=== PATIENT | female | born 1955 | race Caucasian/White ===

== ENCOUNTER → 2017-02-12 | Outpatient (CLI) | payer MEDICARE, OTHER ==
[2017-02-12 12:34] LABS: CH 31.6; CHCM 32.3; HCT 42.4 % (34.0-46.0); HGB 13.7 gm/dL (11.4-16.0); MCH 31.7 pg (25.0-35.0); MCHC 32.3 g/dL (31.0-37.0); MCV 98.2 fL (80.0-100.0); Mean Platelet Volume 8.7; RBC 4.32 m/uL (3.80-5.40); RDW 13.4 % (11.5-15.5)
[2017-02-12 12:50] LABS: Anion Gap 7 mmol/L; Blood Urea Nitrogen 20 mg/dL (7-17); Calcium 9.8 mg/dL (8.4-10.2); Carbon Dioxide 26 mmol/L (22-30); Chloride 107 mmol/L (98-107); Glucose 282 mg/dL (74-99); Non-African American GFR(MDRD) 55 (>60 ml/min/1.73 sqM); Potassium 5.1 mmol/L (3.5-5.1); Sodium 140 mmol/L (137-145)
--- NOTE | 2017-02-12 14:24 | CT ---
EXAMINATION TYPE: CT abdomen pelvis w con DATE OF EXAM: 02/12/2017 COMPARISON: 08/19/2016 INDICATION: Patient complains of RLQ pain, recurrent UTI, and loss of appetite. DLP: 1040 mGycm, Automated exposure control for dose reduction was used. CONTRAST: 80 mL of Visipaque 320. Study performed with Oral Contrast TECHNIQUE: Axial images were obtained from above the diaphragm to the pubic rami in the axial plane a t 5 mm thick sections. Reconstructed images are reviewed on the computer in the coronal plane. FINDINGS: Limited CT sections are obtained the lung bases. The lung bases are clear. CT ABDOMEN: Liver: Normal Spleen: Multiple calcified granuloma within the spleen. Pancreas: Pancreatic duct within head and body is slightly prominent. There is some pancreas atrophy. Duct within the head of the pancreas measures 0.4 cm. Normal 0.3 cm. Duct within the pancreas body m easures 0.3 cm, normal less than 0.2 cm. Adrenal glands: The adrenal glands are normal. Gallbladder: Surgically absent Kidneys: No masses are evident. No hydronephrosis is present. No cysts are present. Aorta: Vascular calcification is within the aorta. Bypass graft through the iliac regions is present . Inferior vena cava: Normal. CT PELVIS: Loops of bowel within the abdomen and pelvis are normal. There are loops of bowel which are incom pletely distended or lack oral contrast limiting their evaluation. Appendix: Normal as visualized. Urinary bladder: Normal. Genitourinary structures: Uterus is normal. Adnexal regions are unremarkable. Osseous structures: No suspicious lytic or sclerotic lesions. Degenerative disc changes are present L 5-S1. IMPRESSIONS: 1. Prominence of the pancreatic duct. Abnormality is not identified. Consider ERCP for additional ev aluation. This appears to be interval change. 2. No suspicious acute changes.
== END | disposition home or self-care (01) ==
LOC: RADCTMAIN 12:00
PROVIDERS: ATTEND Family Medicine
DX: R10.9 Unspecified abdominal pain (principal)
CPT/HCPCS: 80048; 85027; 74177; 36415; Q9967

== ENCOUNTER 2017-03-24 13:33 | Observation (INO) | payer MEDICARE, OTHER ==
[2017-03-24] MEDS ORDERED: MORPHINE SULFATE 4 MG/ML SYRINGE IV STA (15:46)
[2017-03-24] MEDS ORDERED: ASPIRIN 81 MG CHEW PO STA (15:46)
[2017-03-24] MEDS ORDERED: ONDANSETRON 4 MG/2 ML VIAL IVP STA (15:50)
--- NOTE | 2017-03-24 16:01 | ED ---
Abdominal Pain HPI - General Chief Complaint: Abdominal Pain Stated Complaint: Abd Pain Time Seen by Provider: 03/24/17 15:26 Source: patient Mode of arrival: ambulatory Limitations: no limitations - History of Present Illness Initial Comments: Patient is a 61-year-old female with a significant medical history of 4 myocardial infarctions, and systemic vascular disease, who presents with the chief complaint of abdominal pain. Patient describes her abdominal pain as sharp, and radiating to her back. Patient states that this started this morning , and has been constant all day. Patient states that she also was supposed to have a cardiac stress test however she missed a couple weeks ago secondary to an illness. Patient cannot identify any aggravating or alleviating factors. Timing is constant. On initial evaluation, the patient's blood pressure was over 200 systolic MD Complaint: abdominal pain Onset/Timin -: days(s) Location: diffuse Radiation: back Severity: moderate Quality: sharp Consistency: constant Improves With: nothing Worsens With: nothing Associated Symptoms: nausea, vomiting, dysuria Treatments Prior to Arrival: prescription analgesics - Related Data Home Medications Medication Instructions Recorded Confirmed Clopidogrel [Plavix] 75 mg PO DAILY 08/19/16 03/24/17 Esomeprazole Magnesium 20 mg PO DAILY 08/19/16 03/24/17 Gabapentin [Neurontin] 300 mg PO BID 08/19/16 03/24/17 Gabapentin [Neurontin] 600 mg PO HS 08/19/16 03/24/17 Isosorbide Mononitrate ER [Imdur] 30 mg PO DAILY 08/19/16 03/24/17 Metoprolol Tartrate [Lopressor] 25 mg PO BID 08/19/16 03/24/17 Simvastatin [Zocor] 20 mg PO HS 08/19/16 03/24/17 predniSONE 5 mg PO DAILY 08/19/16 03/24/17 Albuterol Sulfate [Proair Hfa] 1 - 2 puff INHALATION RT-QID PRN 03/24/17 Cilostazol [Pletal] 100 mg PO AC-BID 03/24/17 03/24/17 HYDROcodone/APAP 10-325MG [[place] 1 tab PO BID PRN 03/24/17 03/24/17 10-325] Hydroxychloroquine Sulfate 200 mg PO BID 03/24/17 03/24/17 [Plaquenil] Insulin NPH/Reg Insulin 70/30 27 unit SQ BID 03/24/17 03/24/17 [humuLIN 70/30 VIAL] Meloxicam [Mobic] 15 mg PO DAILY 03/24/17 03/24/17 amLODIPine [Norvasc] 2.5 mg PO DAILY 03/24/17 03/24/17 Allergies Allergy/AdvReac Type Severity Reaction Status Date / Time No Known Allergies Allergy Verified 03/24/17 13:54 Review of Systems ROS Statement: Those systems with pertinent positive or pertinent negative responses have been documented in the HPI. ROS Other: All systems not noted in ROS Statement are negative. Respiratory: Reports: wheezes Cardiovascular: Reports: chest pain Gastrointestinal: Reports: nausea, vomiting Genitourinary: Reports: dysuria Musculoskeletal: Reports: back pain Past Medical History Past Medical History: Asthma, COPD, Diabetes Mellitus, Fibromyalgia, GERD/Reflux , Hyperlipidemia, Hypertension, Pneumonia, Vascular Disorder Additional Past Medical History / Comment(s): Recent UTI on ABX, NIDDM type II, lupus, sinusitis, low back pain-herniated discs, PVD, bilateral tinnitis, past R ankle fx. History of Any Multi-Drug Resistant Organisms: MRSA Date of last positivie culture/infection: 2010 MDRO Source:: right axilla Past Surgical History: Section, Heart Catheterization With Stent Additional Past Surgical History / Comment(s): Cardiac stent to LCX and mid RCA , bifem bypass done twice, colonoscopy, I&D R gluteal abscess, 2009 R salvary gland removed due to precancerous Past Anesthesia/Blood Transfusion Reactions: No Reported Reaction Date of Last Stent Placement:: 08/01/05 Past Psychological History: Anxiety, Depression Smoking Status: Current every day smoker Past Alcohol Use History: None Reported Past Drug Use History: None Reported - Past Family History Father Additional Family Medical History / Comment(s): Father had heart problems and of an aneurysm rupture in his "heart" at the age of 57yrs. Mother Additional Family Medical History / Comment(s): Mother had lung, brain and "female" cancer. She of this at the age of 57yrs. General Exam Limitations: no limitations General appearance: alert, in no apparent distress Head exam: Present: atraumatic, normocephalic Eye exam: Present: normal appearance ENT exam: Present: normal exam, mucous membranes moist Neck exam: Present: normal inspection Respiratory exam: Present: wheezes Cardiovascular Exam: Present: regular rate, normal rhythm GI/Abdominal exam: Present: soft, tenderness (Patient has diffuse tenderness. There are no palpable pulsatile masses.) Rectal exam: Present: deferred Extremities exam: Present: normal inspection Back exam: Present: normal inspection Neurological exam: Present: alert, oriented X3 Psychiatric exam: Present: normal affect, normal mood Skin exam: Present: warm, dry, intact Course Vital Signs 03/24/17 03/24/17 03/24/17 13:51 16:22 16:32 Temperature 98.1 F Pulse Rate 86 83 79 Respiratory 20 20 97 H Rate Blood Pressure 206/91 183/84 173/79 O2 Sat by Pulse 99 97 97 Oximetry 03/24/17 03/24/17 03/24/17 16:58 17:26 17:59 Temperature 98 F Pulse Rate 77 72 72 Respiratory 18 18 16 Rate Blood Pressure 167/93 169/79 180/85 O2 Sat by Pulse 97 95 95 Oximetry Medical Decision Making - Medical Decision Making Patient is a 61-year-old female with a significant past medical history of lupus , 4 MIs, and extensive vasculopathy requiring bypass. Patient continues to be every day smoker. Initial evaluation, the patient is hypertensive with a systolic blood pressure over 200. Patient's history and physical exam is concerning for aortic dissection. Further patient was supposed to have cardiac stress test for which she did not go to secondary to an illness. Patient is a high risk cardiac/vascular patient, we'll send patient cardiac workup, the patient for CT evaluation for aortic dissection. Patient was given 4 mg of morphine, 4 mg of Zofran, 5 mg every 5 minutes 3 doses of metoprolol for her blood pressure initially with a goal of his systolic blood pressure of 160. EKG performed at 1607 shows normal sinus rhythm with a right bundle branch block. Ventricular rate is 76 bpm intervals appear to be within normal limits, EKG is otherwise nonspecific. Right bundle branch block appears to be a new finding when compared to EKG performed on 08/19/2016. Patient not currently having active chest pain, she was given aspirin on arrival. Laboratory evaluation of this patient is unremarkable. Computed tomography scan of the abdomen chest and pelvis show evidence of vascular disease however there is no acute aneurysm, or dissection. Initial troponin is negative. On reexamination, patient states she is still having pain. given the patient is a heart score of 5, and does not have a recent stress test, I advised that it would be safest patient for observation, serial troponins, and repeat stress test. The patient is agreeable to this plan. I spoke with Phyllis Mortensen who accepted admission of this patient on behalf of Dr. Franco. Initial admission orders of been placed, further management per primary admitting team. - Lab Data Result diagrams: 03/24/17 15:24 03/24/17 15:24 Lab Results 03/24/17 03/24/17 03/24/17 Range/Units 15:24 15:24 15:24 WBC 9.1 (3.8-10.6) k/uL RBC 4.69 (3.80-5.40) m/uL Hgb 15.3 (11.4-16.0) gm/dL Hct 43.8 (34.0-46.0) % MCV 93.4 (80.0-100.0) fL MCH 32.8 (25.0-35.0) pg MCHC 35.1 (31.0-37.0) g/dL RDW 13.1 (11.5-15.5) % Plt Count 211 (150-450) k/uL Neutrophils % 80 % Lymphocytes % 13 % Monocytes % 5 % Eosinophils % 1 % Basophils % 0 % Neutrophils # 7.2 (1.3-7.7) k/uL Lymphocytes # 1.2 (1.0-4.8) k/uL Monocytes # 0.4 (0-1.0) k/uL Eosinophils # 0.1 (0-0.7) k/uL Basophils # 0.0 (0-0.2) k/uL PT (9.0-12.0) sec INR (<1.1) APTT (22.0-30.0) sec Sodium 141 (137-145) mmol/L Potassium 5.1 (3.5-5.1) mmol/L Chloride 105 (98-107) mmol/L Carbon Dioxide 24 (22-30) mmol/L Anion Gap 12 mmol/L BUN 22 H (7-17) mg/dL Creatinine 1.10 H (0.52-1.04) mg/dL Est GFR (MDRD) Af Amer >60 (>60 ml/min/1.73 sqM) Est GFR (MDRD) Non-Af 51 (>60 ml/min/1.73 sqM) Glucose 280 H (74-99) mg/dL Calcium 10.7 H (8.4-10.2) mg/dL Magnesium 1.7 (1.6-2.3) mg/dL Total Bilirubin 0.5 (0.2-1.3) mg/dL AST 17 (14-36) U/L ALT 26 (9-52) U/L Alkaline Phosphatase 55 (38-126) U/L Total Creatine Kinase 77 (30-135) U/L CK-MB (CK-2) 1.0 (0.0-2.4) ng/mL CK-MB (CK-2) Rel Index 1.3 Troponin I <0.012 (0.000-0.034) ng/mL Total Protein 7.9 (6.3-8.2) g/dL Albumin 4.8 (3.5-5.0) g/dL Lipase 36 (23-300) U/L Urine Color Urine Appearance (Clear) Urine pH (5.0-8.0) Ur Specific [place] (1.001-1.035) Urine Protein (Negative) Urine Glucose (UA) (Negative) Urine Ketones (Negative) Urine Blood (Negative) Urine Nitrite (Negative) Urine Bilirubin (Negative) Urine Urobilinogen (<2.0) mg/dL Ur Leukocyte Esterase (Negative) Urine WBC (0-5) /hpf Ur Squamous Epith Cells (0-4) /hpf Urine Bacteria (None) /hpf 03/24/17 03/24/17 Range/Units 15:24 16:02 WBC (3.8-10.6) k/uL RBC (3.80-5.40) m/uL Hgb (11.4-16.0) gm/dL Hct (34.0-46.0) % MCV (80.0-100.0) fL MCH (25.0-35.0) pg MCHC (31.0-37.0) g/dL RDW (11.5-15.5) % Plt Count (150-450) k/uL Neutrophils % % Lymphocytes % % Monocytes % % Eosinophils % % Basophils % % Neutrophils # (1.3-7.7) k/uL Lymphocytes # (1.0-4.8) k/uL Monocytes # (0-1.0) k/uL Eosinophils # (0-0.7) k/uL Basophils # (0-0.2) k/uL PT 10.4 (9.0-12.0) sec INR 1.0 (<1.1) APTT 21.0 L (22.0-30.0) sec Sodium (137-145) mmol/L Potassium (3.5-5.1) mmol/L Chloride (98-107) mmol/L Carbon Dioxide (22-30) mmol/L Anion Gap mmol/L BUN (7-17) mg/dL Creatinine (0.52-1.04) mg/dL Est GFR (MDRD) Af Amer (>60 ml/min/1.73 sqM) Est GFR (MDRD) Non-Af (>60 ml/min/1.73 sqM) Glucose (74-99) mg/dL Calcium (8.4-10.2) mg/dL Magnesium (1.6-2.3) mg/dL Total Bilirubin (0.2-1.3) mg/dL AST (14-36) U/L ALT (9-52) U/L Alkaline Phosphatase (38-126) U/L Total Creatine Kinase (30-135) U/L CK-MB (CK-2) (0.0-2.4) ng/mL CK-MB (CK-2) Rel Index Troponin I (0.000-0.034) ng/mL Total Protein (6.3-8.2) g/dL Albumin (3.5-5.0) g/dL Lipase (23-300) U/L Urine Color Colorless Urine Appearance Clear (Clear) Urine pH 5.5 (5.0-8.0) Ur Specific [place] 1.005 (1.001-1.035) Urine Protein Negative (Negative) Urine Glucose (UA) 3+ H (Negative) Urine Ketones Negative (Negative) Urine Blood Negative (Negative) Urine Nitrite Negative (Negative) Urine Bilirubin Negative (Negative) Urine Urobilinogen <2.0 (<2.0) mg/dL Ur Leukocyte Esterase Trace H (Negative) Urine WBC 3 (0-5) /hpf Ur Squamous Epith Cells 2 (0-4) /hpf Urine Bacteria Moderate H (None) /hpf Disposition Clinical Impression: Abdominal pain, Moderate risk chest pain, Atherosclerosis, Intractable abdominal pain Disposition: ADMITTED IP TO THIS HOSP Condition: Fair Referrals: Pavithra Ruiz MD [Primary Care Provider] - 1-2 days
[2017-03-24 16:15] LABS: ALT 26 U/L (9-52); AST 17 U/L (14-36); Alkaline Phosphatase 55 U/L (38-126); Anion Gap 12 mmol/L; Blood Urea Nitrogen 22 mg/dL (7-17); Calcium 10.7 mg/dL (8.4-10.2); Carbon Dioxide 24 mmol/L (22-30); Chloride 105 mmol/L (98-107); Glucose 280 mg/dL (74-99); Magnesium 1.7 mg/dL (1.6-2.3); Non-African American GFR(MDRD) 51 (>60 ml/min/1.73 sqM); Potassium 5.1 mmol/L (3.5-5.1); Prothrombin Time 10.4 sec (9.0-12.0); Sodium 141 mmol/L (137-145); Total Bilirubin 0.5 mg/dL (0.2-1.3); Total Protein 7.9 g/dL (6.3-8.2)
[2017-03-24 16:27] LABS: Basophils % (A) 0 %; CH 31.6; Eosinophils # (A) 0.1 k/uL (0-0.7); Eosinophils % (A) 1 %; HCT 43.8 % (34.0-46.0); HDW 2.54; HGB 15.3 gm/dL (11.4-16.0); Luc # (Auto) 0.07; Luc % (Auto) 1; Lymphocytes # (A) 1.2 k/uL (1.0-4.8); Lymphocytes % (A) 13 %; MCH 32.8 pg (25.0-35.0); MCHC 35.1 g/dL (31.0-37.0); MCV 93.4 fL (80.0-100.0); Mean Platelet Volume 8.6; Monocytes # (A) 0.4 k/uL (0-1.0); Monocytes % (A) 5 %; Neutrophils # (A) 7.2 k/uL (1.3-7.7); Neutrophils % (A) 80 %; RBC 4.69 m/uL (3.80-5.40); RDW 13.1 % (11.5-15.5); WBC 9.1 k/uL (3.8-10.6); WBC (Perox) 8.76
[2017-03-24] MEDS: METOPROLOL TARTRATE 5 MG/5 ML VIAL IVP SCH ×3 (16:27→20:12)
[2017-03-24 16:29] LABS: Appearance,Urine Clear (Clear); Bacteria,Urine Moderate /hpf; Bilirubin,Urine Negative (Negative); Glucose,Urine (UA) 3+ (Negative); Ketones,Urine Negative (Negative); Leukocyte Esterase,Urine Trace (Negative); Nitrite,Urine Negative (Negative); PH, Urine 5.5 (5.0-8.0); Particle Count 3933; Protein,Urine Negative (Negative); Specific Gravity,Urine 1.005 (1.001-1.035); Squamous Epithelial Cell,Urine 2 /hpf (0-4); UA Billing (MACRO vs. MICRO) MICRO; Urobilinogen,Urine <2.0 mg/dL (<2.0); WBC,Urine 3 /hpf (0-5)
[2017-03-24 16:29] LABS: Creatine Kinase 77 U/L (30-135)
[2017-03-24] MEDS: RX INFO: IV CONTRAST WAS GIVEN 1 EACH MISC MISCELLANE PRN ×2 (16:29→16:30)
[2017-03-24 16:42] LABS: Troponin I <0.012 ng/mL (0.000-0.034)
--- NOTE | 2017-03-24 18:04 | XR ---
Exam: FILM CXR Chest PA and lateral views INDICATION: Chest pain COMPARISON: CT chest follow-up 03/24/17 FINDINGS: The cardiomediastinal silhouette is within normal limits. 7 mm calcified granuloma in the left lower lobe midlung field. Additional 5 mm calcified granuloma also in the left midlung field. Remaining lung roque are clear. No acute infiltrate. No pleural effusions. Bony elements are within normal limits for age. No acute osseous abnormality. IMPRESSION: No acute cardiopulmonary disease. 2 calcified granulomas in the left midlung field largest 7 mm. Lungs are otherwise clear without acute infiltrate. Heart size normal.
--- NOTE | 2017-03-24 18:26 | CT ---
Exam: CTA OTHER - CT angio thoracic/abd aorta HISTORY: Pain TECHNIQUE: Multiple contiguous transaxial 5 mm images of the chest, abdomen and pelvis were obtained from thoracic inlet to the pubic symphysis prior to adm. of intravenous contrast. Postcontrast CT chest abdomen pelvis performed from the thoracic inlet to the pubic symphysis at 5 mm axial images. Coronal sagittal reformatted images are provided. Highest CT dose index volume 54.40, total DLP 649.3. COMPARISON: CT abdomen pelvis 02/12/17, chest radiograph 03/24/17 FINDINGS: CT chest: Thoracic aorta normal caliber with mild vascular calcification. No dissection. R graft no pulmonary embolism. Extensive coronary artery calcification. Heart size normal. No pericardial effusion. There are 2 calcified granulomas in the left lower lobe at the mid lung field largest 8 mm. Additional 7 mm calcified granuloma left lower lobe. There are small calcified left hilar lymph nodes and subcarinal lymph node. Lungs are otherwise clear. No effusion or pneumothorax. Endplate degenerative osteophyte formation at several levels of the mid to lower thoracic spine mild degree. No acute osseous abnormality. 9 mm low-density nodule right lobe of the thyroid gland. 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 No internal flow is seen. Overall the transverse dimension of the abdominal aorta at this level is 2.6 cm and AP dimension is up to 1.7 cm. Aortobifemoral patent graft is again noted. No periaortic hematoma or contrast extravasation or dissection flap. Thrombosed manzanita common iliac, external iliac and internal iliac arteries with no flow detected within these vessels. Celiac artery along with superior mesenteric artery are patent without hemodynamically significant stenotic lesion. Inferior mesenteric artery is not seen. Renal arteries are patent without hemodynamically significant stenotic lesion. Calcified granulomas of the spleen. Cholecystectomy noted. Common bile duct diameter measures up to 9 mm tapering distally stable not unexpected post cholecystectomy. Liver, pancreas, adrenal glands and kidneys are unremarkable. No free fluid or free air or bowel obstruction. Small hiatal hernia noted. No adenopathy. No adnexal lesion. Appendix is not identified however no secondary signs for acute appendicitis is seen. No diverticulitis. Unopacified urinary bladder is unremarkable. Multilevel degenerative changes of the lower lumbar spine again noted with discogenic degenerative disease at L5/S1. No acute osseous abnormality.. IMPRESSION: 1. Thoracic aorta normal caliber without dissection. 2. 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 Aortobifemoral graft is again noted with graft patent. No dissection of the abdominal aorta or periaortic hematoma or contrast extravasation. 3. Extensive coronary artery calcification. Heart size normal. 4. No pulmonary embolism. 5. Calcified granulomas in the left lower lobe and spleen along with calcified small left hilar and mediastinal lymph nodes. No acute infiltrates in the lungs. 6. Cholecystectomy. 7. No acute intra-abdominal process identified. No free fluid or free air or bowel obstruction. 8. 9 mm low-density nodule right lobe of the thyroid gland. 10. Small hiatal hernia.
[2017-03-24] MEDS ORDERED: MORPHINE SULFATE 2 MG/ML SYRINGE IVP ONE (18:41)
[2017-03-24] MEDS ORDERED: ACETAMINOPHEN TAB 325 MG TAB PO PRN (19:03)
[2017-03-24] MEDS ORDERED: NALOXONE 0.4 MG/ML 1 ML VIAL IV PRN (19:03)
[2017-03-24] MEDS ORDERED: HYDROcodone/APAP 5-325MG 1 EACH TAB PO PRN (19:03)
[2017-03-24] MEDS ORDERED: METOPROLOL TARTRATE 25 MG TAB PO STA (20:05)
[2017-03-24 21:36] LABS: Glucose,Whole Blood 222 mg/dL (75-99)
[2017-03-24] MEDS ORDERED: ALBUTEROL NEBULIZED 2.5 MG/3 ML INHALATION PRN (22:30)
[2017-03-24] MEDS: ONDANSETRON 4 MG/2 ML VIAL IVP PRN (22:35)
[2017-03-24] MEDS: HYDROmorphone 1 MG/ML 1 ML SYRINGE IVP PRN (23:16)
[2017-03-24] MEDS: ATORVASTATIN 10 MG TAB PO SCH (23:17)
[2017-03-24] MEDS: HYDROXYCHLOROQUINE SULFATE 200 MG TAB PO SCH (23:17)
[2017-03-24] MEDS: CILOSTAZOL 100 MG TAB PO SCH (23:17)
[2017-03-24] MEDS: GABAPENTIN 300 MG CAP PO SCH (23:17)
[2017-03-25] MEDS ORDERED: guaiFENesin SYRUP 100MG/5ML 200 MG/10 ML CUP PO PRN (03:37)
[2017-03-25 03:49] LABS: Basophils # (A) 0.1 k/uL (0-0.2); Basophils % (A) 1 %; CH 31.3; CHCM 33.6; Eosinophils # (A) 0.3 k/uL (0-0.7); Eosinophils % (A) 4 %; HCT 42.2 % (34.0-46.0); HDW 2.55; HGB 14.3 gm/dL (11.4-16.0); Luc # (Auto) 0.14; Luc % (Auto) 2; Lymphocytes # (A) 1.8 k/uL (1.0-4.8); Lymphocytes % (A) 23 %; MCH 31.8 pg (25.0-35.0); MCHC 33.9 g/dL (31.0-37.0); MCV 93.6 fL (80.0-100.0); Mean Platelet Volume 7.3; Monocytes # (A) 0.6 k/uL (0-1.0); Monocytes % (A) 7 %; Neutrophils # (A) 5.1 k/uL (1.3-7.7); Neutrophils % (A) 64 %; RDW 12.9 % (11.5-15.5); WBC (Perox) 8.17
[2017-03-25 04:02] LABS: Potassium 4.7 mmol/L (3.5-5.1)
[2017-03-25 06:51] LABS: Glucose,Whole Blood 163 mg/dL (75-99)
[2017-03-25] MEDS: HYDROmorphone 1 MG/ML 1 ML SYRINGE IVP PRN ×3 (08:29→21:25)
[2017-03-25] MEDS ORDERED: MELOXICAM 7.5 MG TAB PO SCH (09:00)
[2017-03-25] MEDS ORDERED: amLODIPine 2.5 MG TAB PO SCH (09:00)
[2017-03-25] MEDS: ONDANSETRON 4 MG/2 ML VIAL IVP PRN (09:15)
[2017-03-25] MEDS: CLOPIDOGREL 75 MG TAB PO SCH (09:57)
[2017-03-25] MEDS: GABAPENTIN 300 MG CAP PO SCH ×3 (09:57→20:58)
[2017-03-25] MEDS: CILOSTAZOL 100 MG TAB PO SCH ×2 (09:57→17:48)
[2017-03-25] MEDS: amLODIPine 5 MG TAB PO SCH (09:57)
[2017-03-25] MEDS: predniSONE 5 MG TAB PO SCH (09:58)
[2017-03-25] MEDS: HYDROXYCHLOROQUINE SULFATE 200 MG TAB PO SCH ×2 (09:58→20:58)
[2017-03-25] MEDS: ISOSORBIDE MONONITRATE ER 30 MG TAB.ER.24H PO SCH (09:58)
[2017-03-25] MEDS: METOPROLOL TARTRATE 25 MG TAB PO SCH ×2 (09:58→20:58)
[2017-03-25] MEDS: PANTOPRAZOLE 40 MG TABLET PO SCH (09:58)
[2017-03-25] MEDS: NICOTINE 14MG/24HR PATCH TRANSDERM SCH (09:59)
[2017-03-25] MEDS: ASPIRIN 81 MG CHEW PO SCH (09:59)
[2017-03-25] MEDS: INSULIN NPH/REG INSULIN 70/30 300 UNIT/3 ML VIAL SQ SCH ×2 (10:04→20:59)
[2017-03-25 12:03] LABS: Glucose,Whole Blood 128 mg/dL (75-99)
[2017-03-25] MEDS ORDERED: MAG HYDROX/AL HYDROX/SIMETH 30 ML, HYOSCYAMINE ELIXIR 10 ML, CIMETIDINE HCL 300 MG, LID... PO STA ×8 (12:07→12:09)
--- NOTE | 2017-03-25 16:07 | CONS ---
This is a 61 year old lady with a known history of smoking, COPD, history of aortobifemoral surgery who came into the emergency room. This lady was visiting here with her family and has her health care in the [facility] and [place], [place]. She came in with abdominal pain, sharp and seemed to be associated with some nausea. She does not have any chest discomfort to suggest angina. Troponins do not reveal any myocardial injury. Her blood pressure was also elevated transiently. Pressure is better now. She is resting comfortably without symptoms. She still has some tenderness in the abdomen. CT scan of the abdomen did not reveal any significant abnormalities. She has history of aortobifem surgery as well as percutaneous intervention, details of which are unavailable. She has no documented history of any percutaneous coronary intervention. Her history is somewhat sketchy. PAST MEDICAL HISTORY: 1. Peripheral arterial disease with history of aortobifemoral surgery performed in the past. 2. She has history of smoking. 3. COPD. 4. Hyperlipidemia. 5. Hypertension. She has history of previous heart catheterization, stent to circumflex and RCA, the details of which are not available. This was prior to 2009. SOCIAL HISTORY: The patient smokes half to one pack daily, does not use alcohol on a regular basis. On examination, the blood pressure is 150/80. Pulse rate is 70 per minute. Regular. HEENT was unremarkable. Fundus was not examined by me. Neck is supple. There was was no JVD. I do not hear a carotid bruit. Heart exam reveals S1, S2 heard normally with a short systolic murmur heard at the base. Lungs revealed diminished air entry. Abdomen is soft. There is some tenderness in the epigastrium. Bowel sounds are normal. Lower extremities reveal diminished pulses. Central nervous system is normal. EKG reveals sinus mechanism, right bundle branch block pattern. Laboratory data reveals that troponins are normal. Renal function is normal. Blood glucose is elevated. IMPRESSION: 1. Hypertension. 2. History of coronary artery disease with previous percutaneous coronary intervention more than ten years ago, details are unclear. 3. History of aortobifemoral surgery in the past. 4. Type 2 diabetes. 5. Hypertension. 6. History of chronic obstructive pulmonary disease on Prednisone. RECOMMENDATIONS: Cardiac-cho, I am not recommending any intervention. This lady may have CAD but on presentation does not suggest myocardial injury. She has abdominal pain which has improved. There is no aortic pathology by CT scan also. I would recommend no intervention but will increase the Amlodipine to 5 mg daily to optimize BP control and she can be discharged when she is feeling better and ambulatory and have further care at [facility] and also [facility] where she has had previous vascular surgeries. If she has any anginal type symptoms, I will come back and reevaluate the patient. Thank you very much for the consult. STEFANI
--- NOTE | 2017-03-25 16:34 | P.HPIM ---
History of Present Illness H&P Date: 03/25/17 Chief Complaint: Abdominal pain This is a 61-year-old female with previous history of CAD, PAD comes in the hospital with abdominal pain 5 weeks. Patient was seen by her primary care physician initially underwent an evaluation of the computed tomography scan of the abdomen was noted to have a dilatation of the pancreatic duct. Patient states her complains of diffuse abdominal pain that is constant with intermittent spurts worsening. Patient denies having any worsening of pain with relation to oral intake No other alleviating or exacerbating factors have been attributed by the patient No recent weight loss as reported Patient states that she has been having urinary urgency as well as the recent times Patient was admitted also complaining of some lower chest pain and was seen by her lock installer as well At this time patient states that she has nausea and diffuse abdominal pain that is 5-6 out of 10 in intensity Review of Systems All systems: negative (Noted in HPI) Past Medical History Past Medical History: Asthma, COPD, Diabetes Mellitus, Fibromyalgia, GERD/Reflux , Hyperlipidemia, Hypertension, Pneumonia, Vascular Disorder Additional Past Medical History / Comment(s): Recent UTI on ABX, NIDDM type II, lupus, sinusitis, low back pain-herniated discs, PVD, bilateral tinnitis, past R ankle fx. History of Any Multi-Drug Resistant Organisms: MRSA Date of last positivie culture/infection: 2010 MDRO Source:: right axilla Past Surgical History: Section, Cholecystectomy, Heart Catheterization With Stent Additional Past Surgical History / Comment(s): Cardiac stent to LCX and mid RCA , bifem bypass done twice, colonoscopy, I&D R gluteal abscess, 2009 R salvary gland removed due to precancerous Past Anesthesia/Blood Transfusion Reactions: No Reported Reaction Date of Last Stent Placement:: 08/01/05 Smoking Status: Current every day smoker - Past Family History Father Additional Family Medical History / Comment(s): Father had heart problems and of an aneurysm rupture in his "heart" at the age of 57yrs. Mother Additional Family Medical History / Comment(s): Mother had lung, brain and "female" cancer. She of this at the age of 57yrs. Medications and Allergies Home Medications Medication Instructions Recorded Confirmed Type Clopidogrel [Plavix] 75 mg PO DAILY 08/19/16 03/24/17 History Esomeprazole Magnesium 20 mg PO DAILY 08/19/16 03/24/17 History Gabapentin [Neurontin] 300 mg PO BID 08/19/16 03/24/17 History Gabapentin [Neurontin] 600 mg PO HS 08/19/16 03/24/17 History Isosorbide Mononitrate ER [Imdur] 30 mg PO DAILY 08/19/16 03/24/17 History Metoprolol Tartrate [Lopressor] 25 mg PO BID 08/19/16 03/24/17 History Simvastatin [Zocor] 20 mg PO HS 08/19/16 03/24/17 History predniSONE 5 mg PO DAILY 08/19/16 03/24/17 History Albuterol Sulfate [Proair Hfa] 2 puff INHALATION RT-QID PRN 03/24/17 03/24/17 History Cilostazol [Pletal] 100 mg PO AC-BID 03/24/17 03/24/17 History HYDROcodone/APAP 10-325MG [[place] 1 tab PO BID PRN 03/24/17 03/24/17 History 10-325] Hydroxychloroquine Sulfate 200 mg PO BID 03/24/17 03/24/17 History [Plaquenil] Insulin NPH/Reg Insulin 70/30 27 unit SQ BID 03/24/17 03/24/17 History [humuLIN 70/30 VIAL] Meloxicam [Mobic] 15 mg PO DAILY 03/24/17 03/24/17 History amLODIPine [Norvasc] 2.5 mg PO DAILY 03/24/17 03/24/17 History Allergies Allergy/AdvReac Type Severity Reaction Status Date / Time No Known Allergies Allergy Verified 03/24/17 21:22 Physical Exam Vitals: Vital Signs Temp Pulse Pulse Pulse Resp BP BP 03/25/17 16:00 97.9 F 69 14 111/50 03/25/17 12:00 97.9 F 84 15 135/63 03/25/17 08:00 98.2 F 75 16 162/74 03/25/17 03:38 98.4 F 79 18 155/82 03/25/17 00:00 98.2 F 70 18 162/76 03/24/17 20:03 97.5 F L 70 16 178/78 03/24/17 20:00 97.9 F 73 16 189/82 03/24/17 19:36 85 16 167/85 03/24/17 17:59 98 F 72 16 180/85 03/24/17 17:26 72 18 169/79 03/24/17 16:58 77 18 167/93 03/24/17 16:32 79 97 H 173/79 Pulse Ox 03/25/17 16:00 95 03/25/17 12:00 92 L 03/25/17 08:00 94 L 03/25/17 03:38 95 03/25/17 00:00 95 03/24/17 20:03 97 03/24/17 20:00 99 03/24/17 19:36 97 03/24/17 17:59 95 03/24/17 17:26 95 03/24/17 16:58 97 03/24/17 16:32 97 Intake and Output 03/25/17 03/25/17 03/25/17 06:59 14:59 22:59 Other: Voiding Method Toilet # Voids 1 1 Physical exam Gen. appearance oriented 3 in no distress Neck is supple no JVD Lungs good air entry clear to auscultation no rhonchi or wheezing Heart S1-S2 heard regular rate and rhythm no murmurs appreciated Abdomen diffusely tender to palpation organomegaly noted previous surgical scars of the bi-aortofemoral bypasses noted Neurologically cranial nerves II-12 grossly intact no focal motor or sensory deficits noted Skin no abnormalities appreciated Results CBC & Chem 7: 03/25/17 03:23 03/25/17 03:23 Labs: Abnormal Lab Results - Last 24 Hours (Table) 03/24/17 03/24/17 03/25/17 Range/Units 15:24 21:34 03:23 APTT 21.0 L (22.0-30.0) sec BUN 23 H (7-17) mg/dL Creatinine 1.20 H (0.52-1.04) mg/dL Glucose 157 H (74-99) mg/dL POC Glucose (mg/dL) 222 H (75-99) mg/dL 03/25/17 03/25/17 Range/Units 06:45 11:56 APTT (22.0-30.0) sec BUN (7-17) mg/dL Creatinine (0.52-1.04) mg/dL Glucose (74-99) mg/dL POC Glucose (mg/dL) 163 H 128 H (75-99) mg/dL Thrombosis Risk Factor Assmnt - Choose All That Apply Any of the Below Risk Factors Present?: Yes Each Factor Represents 1 point: Abnormal pulmonary function (COPD), Age 41-60 years Other Risk Factors: No Other congenital or acquired thrombophilia - If yes, enter type in comment: No Thrombosis Risk Factor Assessment Total Risk Factor Score: 2 Thrombosis Risk Factor Assessment Level: Low Risk Assessment and Plan Plan: #1 atypical chest pain is is ruled out #2 abdominal pain suspicion for gastritis #3 PAD status post bi-aortofemoral bypass #4 CAD #5 diabetes mellitus type 2 #6 dyslipidemia #7 acute kidney injury due to dehydration #8 peripheral neuropathy #9 ongoing toe tobacco use. #10 COPD that is stable Plan We'll obtain abdominal ultrasound. Continue with IV fluids. Discontinue NSAIDs which would exacerbate kidney injury as well as a gastritis Continue with the Pletal, Imdur, dual antiplatelet therapy with the previous intervention to the coronary system and the peripheral arterial system Patient's blood glucose levels are appropriate We'll have GI evaluate the patient for upper endoscopy
[2017-03-25] MEDS ORDERED: SODIUM CHLORIDE 0.9% 1,000 ML IV STA (16:35)
[2017-03-25 16:53] LABS: Glucose,Whole Blood 87 mg/dL (75-99)
--- NOTE | 2017-03-25 19:02 | US ---
EXAMINATION TYPE: US abdomen complete DATE OF EXAM: 03/25/2017 COMPARISON: NONE CLINICAL HISTORY: mid abdominal pain. EXAM MEASUREMENTS: Liver Length: 14.2 cm Gallbladder Wall: Surgically absent cm CBD: 0.41 cm Spleen: 10.4 cm Right Kidney: 9.1 x 4.4 x 4.1 cm Left Kidney: 8.7 x 4.1 x 4.2 cm Pancreas: duct visualized 0.21cm Liver: wnl Gallbladder: Surgically absent CBD: wnl Spleen: wnl Right Kidney: No hydronephrosis or masses seen Left Kidney: No hydronephrosis or masses seen Upper IVC: wnl Abd Aorta: wnl Cortical medullary differentiation maintained. There is no ascites. The liver is homogenous. The intrahepatic portion of the IVC and proximal abdominal aorta are within normal limits. Common bile duct is unremarkable. The visualized portions of the pancreas are homoge nous. The spleen is unremarkable. Kidneys are symmetric and free of hydronephrosis. No renal lesio ns are seen. IMPRESSION: Post cholecystectomy.
[2017-03-25 19:34] VITALS: RESP 18
[2017-03-25 20:30] LABS: Glucose,Whole Blood 141 mg/dL (75-99)
[2017-03-25] MEDS: ATORVASTATIN 10 MG TAB PO SCH (20:59)
[2017-03-26 06:58] LABS: Glucose,Whole Blood 74 mg/dL (75-99)
[2017-03-26 07:14] LABS: Basophils % (A) 0 %; CHCM 33.4; Eosinophils # (A) 0.1 k/uL (0-0.7); Eosinophils % (A) 1 %; HCT 43.6 % (34.0-46.0); HDW 2.62; HGB 15.1 gm/dL (11.4-16.0); Luc # (Auto) 0.11; Luc % (Auto) 1; Lymphocytes # (A) 1.9 k/uL (1.0-4.8); Lymphocytes % (A) 15 %; MCH 32.1 pg (25.0-35.0); MCHC 34.5 g/dL (31.0-37.0); MCV 93.1 fL (80.0-100.0); Mean Platelet Volume 7.6; Monocytes # (A) 0.6 k/uL (0-1.0); Monocytes % (A) 5 %; Neutrophils # (A) 9.6 k/uL (1.3-7.7); Neutrophils % (A) 78 %; RBC 4.68 m/uL (3.80-5.40); RDW 13.1 % (11.5-15.5); WBC 12.4 k/uL (3.8-10.6); WBC (Perox) 11.97
[2017-03-26 07:43] LABS: ALT 19 U/L (9-52); AST 19 U/L (14-36); Alkaline Phosphatase 46 U/L (38-126); Anion Gap 11 mmol/L; Blood Urea Nitrogen 22 mg/dL (7-17); Calcium 9.4 mg/dL (8.4-10.2); Carbon Dioxide 29 mmol/L (22-30); Chloride 104 mmol/L (98-107); Glucose 76 mg/dL (74-99); Non-African American GFR(MDRD) 54 (>60 ml/min/1.73 sqM); Potassium 4.8 mmol/L (3.5-5.1); Sodium 144 mmol/L (137-145); Total Bilirubin 0.4 mg/dL (0.2-1.3); Total Protein 7.6 g/dL (6.3-8.2)
[2017-03-26] MEDS: HYDROmorphone 1 MG/ML 1 ML SYRINGE IVP PRN (08:34)
[2017-03-26] MEDS: amLODIPine 5 MG TAB PO SCH (09:10)
[2017-03-26] MEDS: HYDROXYCHLOROQUINE SULFATE 200 MG TAB PO SCH (09:10)
[2017-03-26] MEDS: predniSONE 5 MG TAB PO SCH (09:11)
[2017-03-26] MEDS: ISOSORBIDE MONONITRATE ER 30 MG TAB.ER.24H PO SCH (09:11)
[2017-03-26] MEDS: NICOTINE 14MG/24HR PATCH TRANSDERM SCH (09:11)
[2017-03-26] MEDS: GABAPENTIN 300 MG CAP PO SCH (09:11)
[2017-03-26] MEDS: CILOSTAZOL 100 MG TAB PO SCH (09:11)
[2017-03-26] MEDS: METOPROLOL TARTRATE 25 MG TAB PO SCH (09:11)
[2017-03-26] MEDS: PANTOPRAZOLE 40 MG TABLET PO SCH (09:12)
[2017-03-26] MEDS: CLOPIDOGREL 75 MG TAB PO SCH (09:12)
[2017-03-26] MEDS: INSULIN NPH/REG INSULIN 70/30 300 UNIT/3 ML VIAL SQ SCH (09:12)
[2017-03-26] MEDS: ASPIRIN 81 MG CHEW PO SCH (09:12)
--- NOTE | 2017-03-26 09:42 | P.CONS ---
History of Present Illness - Reason for Consult Consult date: 03/26/17 Abdominal pain EGD evaluation - History of Present Illness 61-year-old female with a history of CAD, [place], PAD with vascular surgery maintained on Pletal and Plavix, fibromyalgia, COPD, lupus, anxiety, depression , nicotine cigarette dependency, and cholecystectomy. Patient presents with 1 month history of intermittent right groin pain, epigastric discomfort reflux, nonbloody emesis, and nonbloody diarrhea. Took Pepto-Bismol OTC with minimal improvement. Occasional Nexium but not on a daily basis. Chronic prednisone and Mobic use for history of COPD and fibromyalgia. Followed by [facility] providers in the past. EGD more than 2 years ago. Colonoscopy a few years ago to her memory normal. Mobic discontinued started on Protonix. Epigastric discomfort improved. Still has intermittent right groin discomfort which she thinks could be related to previous surgeries and possible scar tissue. Denies hematemesis or hematochezia or melena. No history of peptic ulcer disease or GI bleeding. Evaluated by cardiology and cleared no further workup planned at this time. Recent stress test a few weeks ago. Hemoglobin 14.3-15.1. Platelet 216. INR 1.0. BUN 22. Creatinine 1.0. Lipase 36. LFTs normal. Ultrasound abdomen liver within normal limits. Gallbladder absent. CBD within normal limits. Thoracic aorta CT no dissection. 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 No dissection of abdominal aorta. No PE. No acute intra- abdominal process identified. He is presently receiving aspirin, Plavix, and Pletal. Review of Systems Constitutional: Denies fever, chills, sweats, weight gain, or loss. HEENT: Negative for migraines, blurred vision or loss, earaches, drainage, tinnitus, oral mucosal lesions, dysphagia, or odynophagia. CARDIAC: CAD. PAD. [place]. Negative for chest pain, arrhythmias, or palpitation. RESPIRATORY: Nicotine cigarette dependency. COPD. Asthma. Negative for shortness of breath, hemoptysis, cough, or sputum production. GI: See HPI for pertinent findings. : Negative for hematuria, urgency, frequency, polyuria, or dysuria. GYNc: Denies possibility of . Negative vaginal discharge. MUSCULOSKELETAL: History of fibromyalgia. NEUROLOGIC: Negative for stroke or TIA. ENDOCRINE: Negative for thyroid problems. SKIN: Negative for rash or itching. PSYCHIATRIC: History of depression and anxiety All systems: negative (See HPI) Past Medical History Past Medical History: Asthma, COPD, Diabetes Mellitus, Fibromyalgia, GERD/Reflux , Hyperlipidemia, Hypertension, Pneumonia, Vascular Disorder Additional Past Medical History / Comment(s): Recent UTI on ABX, NIDDM type II, lupus, sinusitis, low back pain-herniated discs, PVD, bilateral tinnitis, past R ankle fx. History of Any Multi-Drug Resistant Organisms: MRSA Year Discovered:: 2010 MDRO Source:: right axilla Past Surgical History: Section, Cholecystectomy, Heart Catheterization With Stent Additional Past Surgical History / Comment(s): Cardiac stent to LCX and mid RCA , bifem bypass done twice, colonoscopy, I&D R gluteal abscess, 2009 R salvary gland removed due to precancerous Past Anesthesia/Blood Transfusion Reactions: No Reported Reaction Date of Last Stent Placement:: 08/01/05 Smoking Status: Current every day smoker - Past Family History Father Additional Family Medical History / Comment(s): Father had heart problems and of an aneurysm rupture in his "heart" at the age of 57yrs. Mother Additional Family Medical History / Comment(s): Mother had lung, brain and "female" cancer. She of this at the age of 57yrs. Medications and Allergies Home Medications Medication Instructions Recorded Confirmed Type Clopidogrel [Plavix] 75 mg PO DAILY 08/19/16 03/24/17 History Esomeprazole Magnesium 20 mg PO DAILY 08/19/16 03/24/17 History Gabapentin [Neurontin] 300 mg PO BID 08/19/16 03/24/17 History Gabapentin [Neurontin] 600 mg PO HS 08/19/16 03/24/17 History Isosorbide Mononitrate ER [Imdur] 30 mg PO DAILY 08/19/16 03/24/17 History Metoprolol Tartrate [Lopressor] 25 mg PO BID 08/19/16 03/24/17 History Simvastatin [Zocor] 20 mg PO HS 08/19/16 03/24/17 History predniSONE 5 mg PO DAILY 08/19/16 03/24/17 History Albuterol Sulfate [Proair Hfa] 2 puff INHALATION RT-QID PRN 03/24/17 03/24/17 History Cilostazol [Pletal] 100 mg PO AC-BID 03/24/17 03/24/17 History HYDROcodone/APAP 10-325MG [[place] 1 tab PO BID PRN 03/24/17 03/24/17 History 10-325] Hydroxychloroquine Sulfate 200 mg PO BID 03/24/17 03/24/17 History [Plaquenil] Insulin NPH/Reg Insulin 70/30 27 unit SQ BID 03/24/17 03/24/17 History [humuLIN 70/30 VIAL] Meloxicam [Mobic] 15 mg PO DAILY 03/24/17 03/24/17 History amLODIPine [Norvasc] 2.5 mg PO DAILY 03/24/17 03/24/17 History Allergies Allergy/AdvReac Type Severity Reaction Status Date / Time No Known Allergies Allergy Verified 03/24/17 21:22 Physical Exam Vitals: Vital Signs Temp Pulse Resp BP Pulse Ox 03/26/17 07:47 97.7 F 76 18 177/97 97 03/26/17 04:00 98.1 F 58 L 18 140/70 96 03/25/17 23:34 97.9 F 70 18 155/66 97 03/25/17 23:33 18 03/25/17 20:00 18 03/25/17 19:31 97.9 F 69 18 119/56 96 03/25/17 16:00 97.9 F 69 14 111/50 95 03/25/17 12:00 97.9 F 84 15 135/63 92 L Intake and Output 03/25/17 03/26/17 03/26/17 22:59 06:59 14:59 Other: Voiding Method Toilet Toilet # Voids 1 General appearance: The patient is alert, oriented, in no acute distress. HET: Head is normocephalic and atraumatic. Pupils are equal and reactive. Oropharynx is clear without lesions. Neck: Supple without lymphadenopathy. Trachea midline. Heart: S1 S2. Regular rate and rhythm. Lungs: No crackles or wheezes are heard. Abdomen: Soft, very mild midepigastric and right groin tenderness, nondistended with bowel sounds. No peritoneal signs. No palpable organomegaly or masses. Extremities: Normal skin color and turgor. No cyanosis, rash, ulceration, clubbing, or edema. Radial and pedal pulses are 2/4 bilaterally. Neurological: No focal deficits. Strength and sensation are grossly intact. Results CBC & Chem 7: 03/26/17 06:41 03/26/17 06:41 Labs: Abnormal Lab Results - Last 24 Hours (Table) 03/25/17 03/25/17 03/26/17 Range/Units 11:56 20:29 06:41 WBC 12.4 H (3.8-10.6) k/uL Neutrophils # 9.6 H (1.3-7.7) k/uL BUN (7-17) mg/dL POC Glucose (mg/dL) 128 H 141 H (75-99) mg/dL 03/26/17 03/26/17 Range/Units 06:41 06:56 WBC (3.8-10.6) k/uL Neutrophils # (1.3-7.7) k/uL BUN 22 H (7-17) mg/dL POC Glucose (mg/dL) 74 L (75-99) mg/dL Comments: Thoracic CT results reviewed by Dr. Tee. US - abdomen: report reviewed (Dr. Tee) Assessment and Plan (1) Abdominal pain Narrative/Plan: 61-year-old female with an extensive medical history including COPD, CAD, PAD, and fibromyalgia maintained on dual antiplatelet medications NSAIDs and chronic prednisone usage. Epigastric pain could be secondary to NSAID medication induced gastritis esophagitis exacerbation of reflux disease. Symptoms have improved with discontinuation of NSAID and PPI initiation. No evidence of active GI bleeding with stable hemoglobin reported 15.1 Status: Acute Plan: 1. GI symptoms have improved therefore would recommend continue PPI Protonix 40 mg daily and hold NSAIDs. Advance diet as tolerated. If diet is tolerated agreeable for discharge today and follow up in GI office in 1 week for reevaluation and discussion of outpatient EGD. Dual antiplatelet medications along with aspirin increased risk for endoscopic biopsy bleeding and would prefer these medications be held at least 48 hours before proceeding with exam. Patient is agreeable with this plan of care. Thank you for this kind referral and the opportunity to participate in the care of your patient. This consultation was discussed with Dr. Tee. The impression and plan of care have been directed as dictated.
[2017-03-26 11:39] VITALS: BP 154/68; PULSE 65; TEMP 97.6
[2017-03-26 11:59] LABS: Glucose,Whole Blood 243 mg/dL (75-99)
--- NOTE | 2017-03-26 16:40 | P.DS ---
Providers Date of admission: 03/24/17 19:03 Attending physician: Edgar Franco Consults: 03/25/17 08:17 Consult Physician Routine Consulting Provider: Josselin Pearce Consult Reason/Comments: chest pain Do you want consulting provider notified?: Already Contacted 03/25/17 12:08 Consult Physician Routine Consulting Provider: Frank Tee Consult Reason/Comments: Abd pain/need for EGD Do you want consulting provider notified?: Yes Primary care physician: Paivthra Ruiz [facility] Course: H&P Date: 03/25/17 Chief Complaint: Abdominal pain This is a 61-year-old female with previous history of CAD, PAD comes in the hospital with abdominal pain 5 weeks. Patient was seen by her primary care physician initially underwent an evaluation of the computed tomography scan of the abdomen was noted to have a dilatation of the pancreatic duct. Patient states her complains of diffuse abdominal pain that is constant with intermittent spurts worsening. Patient denies having any worsening of pain with relation to oral intake No other alleviating or exacerbating factors have been attributed by the patient No recent weight loss as reported Patient states that she has been having urinary urgency as well as the recent times Patient was admitted also complaining of some lower chest pain and was seen by her drop wire aliner as well At this time patient states that she has nausea and diffuse abdominal pain that is 5-6 out of 10 in intensity Physical exam Gen. appearance oriented 3 in no distress Neck is supple no JVD Lungs good air entry clear to auscultation no rhonchi or wheezing Heart S1-S2 heard regular rate and rhythm no murmurs appreciated Abdomen diffusely tender to palpation organomegaly noted previous surgical scars of the bi-aortofemoral bypasses noted Neurologically cranial nerves II-12 grossly intact no focal motor or sensory deficits noted Skin no abnormalities appreciated Assessment and Plan Plan: #1 atypical chest pain is is ruled out #2 abdominal pain suspicion for gastritis #3 PAD status post bi-aortofemoral bypass #4 CAD #5 diabetes mellitus type 2 #6 dyslipidemia #7 acute kidney injury due to dehydration #8 peripheral neuropathy #9 ongoing toe tobacco use. #10 COPD that is stable #11 thyroid nodule #12 systemic lupus erythematosus Patient is discharged home after improvement in symptoms to follow-up with GI outpatient for an outpatient endoscopy Patient is on steroids and NSAIDs which increases risk for gastritis Ultrasound was reviewed which was normal Patient Condition at Discharge: Fair Plan - Discharge Summary New Discharge Prescriptions: New Pantoprazole [Protonix] 40 mg PO BID #90 tab Continue Gabapentin [Neurontin] 300 mg PO BID predniSONE 5 mg PO DAILY Metoprolol Tartrate [Lopressor] 25 mg PO BID Isosorbide Mononitrate ER [Imdur] 30 mg PO DAILY Clopidogrel [Plavix] 75 mg PO DAILY Simvastatin [Zocor] 20 mg PO HS Gabapentin [Neurontin] 600 mg PO HS Albuterol Sulfate [Proair Hfa] 2 puff INHALATION RT-QID PRN PRN Reason: Dyspnea Hydroxychloroquine Sulfate [Plaquenil] 200 mg PO BID amLODIPine [Norvasc] 2.5 mg PO DAILY HYDROcodone/APAP 10-325MG [[place] 10-325] 1 tab PO BID PRN PRN Reason: Pain Cilostazol [Pletal] 100 mg PO AC-BID Insulin NPH/Reg Insulin 70/30 [humuLIN 70/30 VIAL] 27 unit SQ BID Discontinued Esomeprazole Magnesium 20 mg PO DAILY Meloxicam [Mobic] 15 mg PO DAILY Discharge Medication List Clopidogrel [Plavix] 75 mg PO DAILY 08/19/16 [History] Gabapentin [Neurontin] 300 mg PO BID 08/19/16 [History] Gabapentin [Neurontin] 600 mg PO HS 08/19/16 [History] Isosorbide Mononitrate ER [Imdur] 30 mg PO DAILY 08/19/16 [History] Metoprolol Tartrate [Lopressor] 25 mg PO BID 08/19/16 [History] Simvastatin [Zocor] 20 mg PO HS 08/19/16 [History] predniSONE 5 mg PO DAILY 08/19/16 [History] Albuterol Sulfate [Proair Hfa] 2 puff INHALATION RT-QID PRN 03/24/17 [History] Cilostazol [Pletal] 100 mg PO AC-BID 03/24/17 [History] HYDROcodone/APAP 10-325MG [[place] 10-325] 1 tab PO BID PRN 03/24/17 [History] Hydroxychloroquine Sulfate [Plaquenil] 200 mg PO BID 03/24/17 [History] Insulin NPH/Reg Insulin 70/30 [humuLIN 70/30 VIAL] 27 unit SQ BID 03/24/17 [ History] amLODIPine [Norvasc] 2.5 mg PO DAILY 03/24/17 [History] Pantoprazole [Protonix] 40 mg PO BID #90 tab 03/26/17 [Rx] Follow up Appointment(s)/Referral(s): Frank Tee MD [STAFF PHYSICIAN] - 1 Week Pavithra Ruiz MD [Primary Care Provider] - 1-2 days Discharge Disposition: HOME SELF-CARE
== END 2017-03-26 14:18 | disposition home or self-care (01) ==
LOC: EC 13:33 → 3OBS 19:03
PROVIDERS: ADMIT Hospitalist; ATTEND Hospitalist
DX: R10.9 Unspecified abdominal pain (principal); I25.10 Atherosclerotic heart disease of native coronary artery without angina pectoris; I73.9 Peripheral vascular disease, unspecified; R39.15 Urgency of urination; R11.2 Nausea with vomiting, unspecified; R30.0 Dysuria; Z79.02 Long term (current) use of antithrombotics/antiplatelets; Z79.899 Other long term (current) drug therapy; Z79.52 Long term (current) use of systemic steroids; Z79.4 Long term (current) use of insulin; Z79.891 Long term (current) use of opiate analgesic; J44.9 Chronic obstructive pulmonary disease, unspecified; E11.9 Type 2 diabetes mellitus without complications; I10 Essential (primary) hypertension; K21.9 Gastro-esophageal reflux disease without esophagitis; E78.5 Hyperlipidemia, unspecified; M79.7 Fibromyalgia; Z95.5 Presence of coronary angioplasty implant and graft; Z86.14 Personal history of Methicillin resistant Staphylococcus aureus infection; Z79.1 Long term (current) use of non-steroidal anti-inflammatories (NSAID); F41.9 Anxiety disorder, unspecified; F32.9 Major depressive disorder, single episode, unspecified; F17.200 Nicotine dependence, unspecified, uncomplicated; M32.9 Systemic lupus erythematosus, unspecified; I45.10 Unspecified right bundle-branch block; R10.816 Epigastric abdominal tenderness; E04.1 Nontoxic single thyroid nodule; M06.9 Rheumatoid arthritis, unspecified; N17.9 Acute kidney failure, unspecified; E86.0 Dehydration; G62.9 Polyneuropathy, unspecified
CPT/HCPCS: 96375 ×3; 96376 ×4; 96374 ×2; 99285 ×2; 36415; 93005; 80053 ×2; 80048; 82550; 82553; 83690; 83735; 84484 ×2; 85025 ×3; 85610; 85730; 81001; 71020; 76700; 75635; 71275; G0378 ×3; J2270 ×2; Q9967; J2405 ×2; J1170 ×3; J7512 ×2

== ENCOUNTER 2017-05-26 07:51 | Day surgery (SDC) | payer MEDICARE, OTHER ==
[~2017-05-26 07:51] MED LIST: LACTATED RINGERS 1,000 ML IV SCH
[2017-05-26 08:09] VITALS: RESP 16; TEMP 97.7
[2017-05-26] MEDS ORDERED: LIDOCAINE 1% 20 ML VIAL (10MG/ML) FOR IV START INTRADERMA ONE (08:17)
[2017-05-26 08:21] LABS: Glucose,Whole Blood 203 mg/dL (75-99)
[2017-05-26] MEDS ORDERED: PROPOFOL 10 MG/ML 20 ML VIAL IV ONE (08:54)
[2017-05-26] MEDS ORDERED: LIDOCAINE 1% INJ 10MG/ML (20 ML MDV) ONE (08:54)
--- NOTE | 2017-05-26 09:17 | P.PCN ---
Date of Procedure: 05/26/17 Preoperative Diagnosis: Postoperative Diagnosis: Procedure(s) Performed: Procedure: Esophagogastroduodenoscopy and biopsy. Preoperative diagnosis: Nausea, vomiting and atypical chest pains. Postoperative diagnosis: 1. Small sliding hiatal hernia with no obvious esophagitis or complicated reflux disease. 2. Mild antral gastritis. 3. Retained some partially digested food in the stomach in the absence of evidence of gastric outlet obstruction raising the possibility of gastroparesis. 4. Pyloric channel, duodenal bulb, post bulbar area and descending duodenum within normal limits. 5. Multiple biopsies obtained from the duodenum, antrum and esophagus. Preparation sedation: Was provided by anesthesia. Brief medical history: The patient is a 61-year-old female with history of diabetes mellitus is scheduled for this evaluation for the above reasons to rule out complicated reflux disease, gastric outlet obstruction or other pathology. Procedure: With the patient on her left lateral decubitus position and after informed consent and adequate sedation, I passed the Olympus-GIF 160 video upper endoscope through the cricopharyngeus down the esophagus. GE junction was around 40 cm from the incisors and there was a small sliding hiatal hernia around 1 cm or so in size. The esophagus did not show any esophagitis or complicated reflux disease. The endoscope was then passed into the stomach which was insufflated with air and inspected in detail including the retroflex view in the cardia. There was some mottling and erythema in the antrum but no ulcers or erosions. There was some partially digested food in the stomach raising the possibility of gastroparesis. Pyloric channel did not show any ulcers. Duodenal bulb, post bulbar area and descending duodenum appeared within normal limits. Because of her symptoms, I obtained biopsies from the duodenum, antrum and esophagus before the endoscope was withdrawn. The patient tolerated the procedure well. Plan: The patient was reassured. Will await biopsy results and make further plans based on her course and biopsy results. I will keep you updated on her progress. Implants: Indications for Procedure: Operative Findings: Description of Procedure:
[2017-05-26 09:30] LABS: Glucose,Whole Blood 175 mg/dL (75-99)
[2017-05-26 09:36] VITALS: BP 148/81; PULSE 81
== END 2017-05-26 09:55 | disposition home or self-care (01) ==
LOC: ORWHC2ENDO 07:51
DX: K29.50 Unspecified chronic gastritis without bleeding (principal); K21.0 Gastro-esophageal reflux disease with esophagitis; R07.89 Other chest pain; K44.9 Diaphragmatic hernia without obstruction or gangrene; E11.9 Type 2 diabetes mellitus without complications; E78.5 Hyperlipidemia, unspecified; I10 Essential (primary) hypertension; M32.9 Systemic lupus erythematosus, unspecified; J45.909 Unspecified asthma, uncomplicated; F17.200 Nicotine dependence, unspecified, uncomplicated; M79.7 Fibromyalgia; I25.10 Atherosclerotic heart disease of native coronary artery without angina pectoris; Z95.5 Presence of coronary angioplasty implant and graft; I25.2 Old myocardial infarction; Z79.02 Long term (current) use of antithrombotics/antiplatelets; Z79.4 Long term (current) use of insulin; Z79.891 Long term (current) use of opiate analgesic; Z79.52 Long term (current) use of systemic steroids; Z79.899 Other long term (current) drug therapy
CPT/HCPCS: 88305; 88342; 43239; J2001; J2704

== ENCOUNTER → 2017-10-09 | Outpatient (CLI) | payer MEDICARE, OTHER ==
--- NOTE | 2017-10-09 14:30 | NM ---
EXAMINATION TYPE: NM gastric emptying study DATE OF EXAM: 10/09/2017 COMPARISON: NONE HISTORY: Nausea and vomiting Following administration of 2.2 mCi Tc 99m Sulfur Colloid with 1 cup of oatmeal projection images of the abdomen were obtained 10 minutes post ingestion. When possible, both anterior and posterior proje ction images were obtained to allow the calculation of the geometric mean activity. Clearance: 2% % Half-life: 489 min Gastroesophageal reflux: None IMPRESSION: Gastric emptying: Abnormal as described Gastroesophageal reflux: Not identified with certainty Gastric emptying normal percentage values: 30 minutes: <70% of retention (> 30% emptying) suggests abnormally fast emptying. 60 minutes: <90% retention (>10% emptying) is normal; less than 30% retention (>70% emptying) suggest s abnormally rapid emptying. 90 minutes: <65% retention (> 35% emptying) is normal. 120 minutes: <60% retention (> 40% emptying) is normal. 180 minutes: <30% retention (> 70% emptying) is normal. Gastric emptying T-1/2: Solid: The normal range is 60-105 minutes Liquid only: Normal range is 10-45 minutes. Liquid only-children: At 60 minutes, normal range is 44-58 % . Liquid only-infants: At 60 minutes, normal range is 32-64 %. Additional references: Gastric Emptying Scintigraphy [email or web address]://[email or web address]
== END | disposition home or self-care (01) ==
LOC: RADNMMAIN 06:58
DX: R93.3 Abnormal findings on diagnostic imaging of other parts of digestive tract (principal)
CPT/HCPCS: 78264; A9541

== ENCOUNTER 2017-11-14 13:57 | Emergency (ER) | payer MEDICARE, OTHER ==
[2017-11-14] MEDS ORDERED: MORPHINE SULFATE 4 MG/ML SYRINGE IVP STA (14:30)
--- NOTE | 2017-11-14 14:41 | ED ---
General Adult HPI - General Chief complaint: Chest Pain Stated complaint: Chest pain Time Seen by Provider: 11/14/17 14:12 Source: patient, RN notes reviewed, old records reviewed Mode of arrival: ambulatory Limitations: no limitations - History of Present Illness Initial comments: This is a 8-year-old female to the ER for evaluation of pain. Patient has diffuse body pain and aches. Back pain chest pain. Basophils were leg pain hip pain. Patient states her blood pressure was mildly elevated today. She takes [place] at home for pain with no help. History of fibromyalgia and multiple different areas of pain, chronic back pain. No fevers no cough or congestion, no recent travel history. - Related Data Home Medications Medication Instructions Recorded Confirmed Clopidogrel [Plavix] 75 mg PO DAILY 08/19/16 11/14/17 Isosorbide Mononitrate ER [Imdur] 30 mg PO DAILY 08/19/16 11/14/17 Metoprolol Tartrate [Lopressor] 25 mg PO BID 08/19/16 11/14/17 Simvastatin [Zocor] 20 mg PO HS 08/19/16 11/14/17 predniSONE 5 mg PO DAILY 08/19/16 11/14/17 Albuterol Sulfate [Proair Hfa] 2 puff INHALATION RT-QID PRN 03/24/17 11/14/17 HYDROcodone/APAP 10-325MG [[place] 1 tab PO BID PRN 03/24/17 11/14/17 10-325] Hydroxychloroquine Sulfate 200 mg PO BID 03/24/17 11/14/17 [Plaquenil] Insulin NPH/Reg Insulin 70/30 28 unit SQ BID 03/24/17 11/14/17 [humuLIN 70/30 VIAL] amLODIPine [Norvasc] 2.5 mg PO DAILY 03/24/17 11/14/17 Gabapentin [Neurontin] 400 mg PO BID 05/22/17 11/14/17 Ondansetron [Zofran] 8 mg PO Q12HR 05/22/17 11/14/17 diphenhydrAMINE [Benadryl] 50 mg PO HS PRN 05/22/17 11/14/17 tiZANidine [Zanaflex] 2 mg PO Q8HR PRN 05/22/17 11/14/17 Nitroglycerin Sl Tabs [Nitrostat] 0.4 mg SUBLINGUAL Q5M PRN 11/14/17 11/14/17 Previous Rx's Medication Instructions Recorded Pantoprazole [Protonix] 40 mg PO BID #90 tab 03/26/17 Allergies Allergy/AdvReac Type Severity Reaction Status Date / Time No Known Allergies Allergy Verified 11/14/17 14:14 Review of Systems ROS Statement: Those systems with pertinent positive or pertinent negative responses have been documented in the HPI. ROS Other: All systems not noted in ROS Statement are negative. Past Medical History Past Medical History: Asthma, Chest Pain / Angina, Diabetes Mellitus, Fibromyalgia, GERD/Reflux, Hyperlipidemia, Hypertension, Myocardial Infarction ( [place]), Vascular Disorder Additional Past Medical History / Comment(s): lupus, sinusitis, low back pain- herniated discs, PVD, bilateral tinnitis, [place] X3 Last Myocardial Infarction Date:: unknown History of Any Multi-Drug Resistant Organisms: MRSA Date of last positivie culture/infection: 2010 MDRO Source:: right axilla Past Surgical History: Section, Cholecystectomy, Heart Catheterization With Stent Additional Past Surgical History / Comment(s): total w cardiac stents, colonoscopy, I&D R gluteal abscess, R salvary gland removed due to precancerous Past Anesthesia/Blood Transfusion Reactions: No Reported Reaction Date of Last Stent Placement:: 08/01/05 Past Psychological History: Depression Smoking Status: Current every day smoker Past Alcohol Use History: None Reported Past Drug Use History: None Reported - Past Family History Father Additional Family Medical History / Comment(s): . Mother Family Medical History: Cancer Additional Family Medical History / Comment(s): . Sister(s) Family Medical History: Cancer General Exam Limitations: no limitations General appearance: alert, in no apparent distress, anxious, cachectic Head exam: Present: atraumatic, normocephalic, normal inspection Eye exam: Present: normal appearance, PERRL, EOMI. Absent: scleral icterus, conjunctival injection, periorbital swelling ENT exam: Present: normal exam, mucous membranes moist Neck exam: Present: normal inspection. Absent: tenderness, meningismus, lymphadenopathy Respiratory exam: Present: normal lung sounds bilaterally. Absent: respiratory distress, wheezes, rales, rhonchi, stridor Cardiovascular Exam: Present: regular rate, normal rhythm, normal heart sounds. Absent: systolic murmur, diastolic murmur, rubs, gallop, clicks GI/Abdominal exam: Present: soft, normal bowel sounds. Absent: distended, tenderness, guarding, rebound, rigid Extremities exam: Present: normal inspection, full ROM, normal capillary refill. Absent: tenderness, pedal edema, joint swelling, calf tenderness Back exam: Present: normal inspection Neurological exam: Present: alert, oriented X3, CN II-XII intact Psychiatric exam: Present: normal affect, normal mood Skin exam: Present: warm, dry, intact, normal color. Absent: rash Course Vital Signs 11/14/17 11/14/17 11/14/17 14:01 14:24 16:17 Temperature 97.9 F 98.7 F Pulse Rate 124 H 104 H 100 Respiratory 18 18 16 Rate Blood Pressure 153/95 190/87 165/75 O2 Sat by Pulse 99 97 100 Oximetry - Reevaluation(s) Reevaluation #1: Pain resolved patient asking to go home EKG Findings - EKG Comments: EKG Findings:: EKG shows sinus tachycardia rate 103, CT 126, QRS 122, QTc 479 Medical Decision Making - Medical Decision Making 62 female the ER for evaluation of pain back pain chest pain leg pain history of chronic pain. Patient given pain medication in the ER with good results. A she follows up with primary care this week and wants to go home - Lab Data Result diagrams: 11/14/17 14:25 11/14/17 14:25 Lab Results 11/14/17 11/14/17 11/14/17 Range/Units 14:25 14:25 14:25 WBC 13.2 H (3.8-10.6) k/uL RBC 4.54 (3.80-5.40) m/uL Hgb 14.1 (11.4-16.0) gm/dL Hct 42.5 (34.0-46.0) % MCV 93.7 (80.0-100.0) fL MCH 31.1 (25.0-35.0) pg MCHC 33.2 (31.0-37.0) g/dL RDW 13.0 (11.5-15.5) % Plt Count 280 (150-450) k/uL Neutrophils % 86 % Lymphocytes % 8 % Monocytes % 4 % Eosinophils % 1 % Basophils % 0 % Neutrophils # 11.4 H (1.3-7.7) k/uL Lymphocytes # 1.1 (1.0-4.8) k/uL Monocytes # 0.5 (0-1.0) k/uL Eosinophils # 0.1 (0-0.7) k/uL Basophils # 0.0 (0-0.2) k/uL PT (9.0-12.0) sec INR (<1.2) APTT (22.0-30.0) sec Sodium 140 (137-145) mmol/L Potassium 4.3 (3.5-5.1) mmol/L Chloride 104 (98-107) mmol/L Carbon Dioxide 24 (22-30) mmol/L Anion Gap 12 mmol/L BUN 22 H (7-17) mg/dL Creatinine 1.26 H (0.52-1.04) mg/dL Est GFR (MDRD) Af Amer 52 (>60 ml/min/1.73 sqM) Est GFR (MDRD) Non-Af 43 (>60 ml/min/1.73 sqM) Glucose 202 H (74-99) mg/dL Calcium 10.0 (8.4-10.2) mg/dL Magnesium 1.8 (1.6-2.3) mg/dL Total Bilirubin 0.4 (0.2-1.3) mg/dL AST 15 (14-36) U/L ALT 17 (9-52) U/L Alkaline Phosphatase 67 (38-126) U/L Total Creatine Kinase 54 (30-135) U/L CK-MB (CK-2) 0.4 (0.0-2.4) ng/mL CK-MB (CK-2) Rel Index 0.7 Troponin I <0.012 (0.000-0.034) ng/mL NT-Pro-B Natriuret Pep pg/mL Total Protein 7.6 (6.3-8.2) g/dL Albumin 4.4 (3.5-5.0) g/dL Lipase 27 (23-300) U/L 11/14/17 11/14/17 Range/Units 14:25 14:25 WBC (3.8-10.6) k/uL RBC (3.80-5.40) m/uL Hgb (11.4-16.0) gm/dL Hct (34.0-46.0) % MCV (80.0-100.0) fL MCH (25.0-35.0) pg MCHC (31.0-37.0) g/dL RDW (11.5-15.5) % Plt Count (150-450) k/uL Neutrophils % % Lymphocytes % % Monocytes % % Eosinophils % % Basophils % % Neutrophils # (1.3-7.7) k/uL Lymphocytes # (1.0-4.8) k/uL Monocytes # (0-1.0) k/uL Eosinophils # (0-0.7) k/uL Basophils # (0-0.2) k/uL PT 9.8 (9.0-12.0) sec INR 1.0 (<1.2) APTT 23.6 (22.0-30.0) sec Sodium (137-145) mmol/L Potassium (3.5-5.1) mmol/L Chloride (98-107) mmol/L Carbon Dioxide (22-30) mmol/L Anion Gap mmol/L BUN (7-17) mg/dL Creatinine (0.52-1.04) mg/dL Est GFR (MDRD) Af Amer (>60 ml/min/1.73 sqM) Est GFR (MDRD) Non-Af (>60 ml/min/1.73 sqM) Glucose (74-99) mg/dL Calcium (8.4-10.2) mg/dL Magnesium (1.6-2.3) mg/dL Total Bilirubin (0.2-1.3) mg/dL AST (14-36) U/L ALT (9-52) U/L Alkaline Phosphatase (38-126) U/L Total Creatine Kinase (30-135) U/L CK-MB (CK-2) (0.0-2.4) ng/mL CK-MB (CK-2) Rel Index Troponin I (0.000-0.034) ng/mL NT-Pro-B Natriuret Pep 37 pg/mL Total Protein (6.3-8.2) g/dL Albumin (3.5-5.0) g/dL Lipase (23-300) U/L - Radiology Data Radiology results: report reviewed (Chest x-ray negative for acute disease), image reviewed Disposition Clinical Impression: Chest pain, Abdominal pain, Chronic pain Disposition: HOME SELF-CARE Condition: Good Instructions: Chronic Pain (ED) Referrals: Pavithra Ruiz MD [Primary Care Provider] - 1-2 days
[2017-11-14 14:53] LABS: Basophils % (A) 0 %; Eosinophils # (A) 0.1 k/uL (0-0.7); Eosinophils % (A) 1 %; HCT 42.5 % (34.0-46.0); HGB 14.1 gm/dL (11.4-16.0); Lymphocytes # (A) 1.1 k/uL (1.0-4.8); Lymphocytes % (A) 8 %; MCH 31.1 pg (25.0-35.0); MCHC 33.2 g/dL (31.0-37.0); MCV 93.7 fL (80.0-100.0); Mean Platelet Volume 7.7; Monocytes # (A) 0.5 k/uL (0-1.0); Monocytes % (A) 4 %; Neutrophils # (A) 11.4 k/uL (1.3-7.7); Neutrophils % (A) 86 %; Platelet Count 280 k/uL (150-450); RBC 4.54 m/uL (3.80-5.40); WBC 13.2 k/uL (3.8-10.6)
[2017-11-14 15:01] LABS: Partial Thromboplastin Time 23.6 sec (22.0-30.0); Prothrombin Time 9.8 sec (9.0-12.0)
[2017-11-14 15:04] LABS: Albumin 4.4 g/dL (3.5-5.0); Potassium 4.3 mmol/L (3.5-5.1); Total Bilirubin 0.4 mg/dL (0.2-1.3); Total Protein 7.6 g/dL (6.3-8.2)
[2017-11-14 15:14] LABS: Creatine Kinase 54 U/L (30-135)
--- NOTE | 2017-11-14 15:17 | XR ---
EXAMINATION TYPE: XR chest 2V DATE OF EXAM: 11/14/2017 COMPARISON: Chest x-ray March 24, 2017. HISTORY: Chest pain. TECHNIQUE: Frontal and lateral views of the chest are obtained. FINDINGS: There is chronic emphysematous change without suspicious new focal air space opacity, pleu ral effusion, or pneumothorax seen. Calcified nodule or granuloma left mid to lower lung is redemonst rated. The cardiac silhouette size is within normal limits. Coronary stents are noted on lateral vi ew. Cholecystectomy clips are seen. The osseous structures are intact. IMPRESSION: Chronic changes without acute pulmonary process.
[2017-11-14 15:26] LABS: Creatine Kinase MB 0.4 ng/mL (0.0-2.4); Troponin I <0.012 ng/mL (0.000-0.034)
[2017-11-14 16:18] VITALS: BP 165/75; PULSE 100; RESP 16; TEMP 98.7
== END 2017-11-14 16:18 | disposition home or self-care (01) ==
LOC: EC 13:57
DX: R07.9 Chest pain, unspecified (principal); R10.9 Unspecified abdominal pain; G89.29 Other chronic pain; M54.9 Dorsalgia, unspecified; M79.606 Pain in leg, unspecified; M25.559 Pain in unspecified hip; J45.909 Unspecified asthma, uncomplicated; E11.9 Type 2 diabetes mellitus without complications; M79.7 Fibromyalgia; E78.5 Hyperlipidemia, unspecified; I10 Essential (primary) hypertension; I25.2 Old myocardial infarction; F17.200 Nicotine dependence, unspecified, uncomplicated; Z86.14 Personal history of Methicillin resistant Staphylococcus aureus infection; Z95.5 Presence of coronary angioplasty implant and graft; Z79.02 Long term (current) use of antithrombotics/antiplatelets; Z79.52 Long term (current) use of systemic steroids; Z79.4 Long term (current) use of insulin; Z79.899 Other long term (current) drug therapy
CPT/HCPCS: 36415; 93005; 83880; 80053; 82550; 82553; 83690; 83735; 84484; 85025; 85610; 85730; 71046; 99285; 96374; J2270

== ENCOUNTER 2018-02-27 13:20 | Emergency (ER) | payer MEDICARE, OTHER ==
[2018-02-27 13:40] VITALS: RESP 18; TEMP 98.1
[2018-02-27] MEDS ORDERED: SODIUM CHLORIDE 0.9% 1,000 ML IV STA (13:51)
[2018-02-27] MEDS ORDERED: ONDANSETRON 4 MG/2 ML VIAL IVP STA ×2 (13:51→16:08)
--- NOTE | 2018-02-27 13:55 | ED ---
General Adult HPI - General Chief complaint: Nausea/Vomiting/Diarrhea Stated complaint: Vomiting Time Seen by Provider: 02/27/18 13:44 Source: patient, RN notes reviewed Mode of arrival: wheelchair Limitations: no limitations - History of Present Illness Initial comments: Patient 62-year-old female presenting to the emergency room to chief complaint of symptoms of pain, abdominal pain, nausea or vomiting, diarrhea. Patient states she began expressing some lower back pain a few days ago. States that nausea vomiting diarrhea started early this morning. Patient does admit that she's currently out of her pain medication [place] last dose was yesterday. She states she needs a new prescription. Patient denies any other complaints or symptoms at this time. Patient denies any recent fever, chills, shortness of breath, chest pain, numbness or tingling, dysuria or hematuria, constipation, headaches or visual changes, or any other complaints. - Related Data Home Medications Medication Instructions Recorded Confirmed Clopidogrel [Plavix] 75 mg PO DAILY 08/19/16 02/27/18 Simvastatin [Zocor] 20 mg PO HS 08/19/16 02/27/18 predniSONE 5 mg PO DAILY 08/19/16 02/27/18 Albuterol Sulfate [Proair Hfa] 2 puff INHALATION RT-QID PRN 03/24/17 02/27/18 HYDROcodone/APAP 10-325MG [[place] 1 tab PO BID PRN 03/24/17 02/27/18 10-325] Hydroxychloroquine Sulfate 200 mg PO BID 03/24/17 02/27/18 [Plaquenil] Insulin NPH/Reg Insulin 70/30 28 unit SQ BID 03/24/17 02/27/18 [humuLIN 70/30 VIAL] amLODIPine [Norvasc] 2.5 mg PO DAILY 03/24/17 02/27/18 Gabapentin [Neurontin] 400 mg PO QID 05/22/17 02/27/18 tiZANidine [Zanaflex] 2 mg PO Q6H PRN 05/22/17 02/27/18 Cilostazol [Pletal] 100 mg PO BID 02/27/18 02/27/18 Famotidine [Pepcid] 20 mg PO DAILY 02/27/18 02/27/18 Montelukast [Singulair] 10 mg PO HS 02/27/18 02/27/18 Previous Rx's Medication Instructions Recorded Sulfamethox-Tmp 800-160Mg [Bactrim 1 tab PO Q12HR #20 tab 02/27/18 DS 800-160 mg] Allergies Allergy/AdvReac Type Severity Reaction Status Date / Time No Known Allergies Allergy Verified 02/27/18 13:50 Review of Systems ROS Statement: Those systems with pertinent positive or pertinent negative responses have been documented in the HPI. ROS Other: All systems not noted in ROS Statement are negative. Past Medical History Past Medical History: Asthma, Chest Pain / Angina, Diabetes Mellitus, Fibromyalgia, GERD/Reflux, Hyperlipidemia, Hypertension, Myocardial Infarction ( [place]), Vascular Disorder Additional Past Medical History / Comment(s): lupus, sinusitis, low back pain- herniated discs, PVD, bilateral tinnitis, [place] X3 Last Myocardial Infarction Date:: unknown History of Any Multi-Drug Resistant Organisms: MRSA Date of last positivie culture/infection: 2010 MDRO Source:: right axilla Past Surgical History: Section, Cholecystectomy, Heart Catheterization With Stent Additional Past Surgical History / Comment(s): total w cardiac stents, colonoscopy, I&D R gluteal abscess, R salvary gland removed due to precancerous , uterus scrape Past Anesthesia/Blood Transfusion Reactions: No Reported Reaction Date of Last Stent Placement:: 08/01/05 Past Psychological History: Depression Smoking Status: Current every day smoker Past Alcohol Use History: None Reported Past Drug Use History: None Reported - Past Family History Father Additional Family Medical History / Comment(s): . Mother Family Medical History: Cancer Additional Family Medical History / Comment(s): . Sister(s) Family Medical History: Cancer General Exam - General Exam Comments Initial Comments: General: The patient is awake and alert, in mild discomfort. Eye: Pupils are equal, round and reactive to light, extra-ocular movements are intact. No nystagmus. There is normal conjunctiva bilaterally. No signs of icterus. Ears, nose, mouth and throat: There are moist mucous membranes and no oral lesions. Neck: The neck is supple, there is no tenderness or JVD. Cardiovascular: There is a regular rate and rhythm. No murmur, rub or gallop is appreciated. Respiratory: Lungs are clear to auscultation, respirations are non-labored, breath sounds are equal. No wheezes, stridor, rales, or rhonchi. Gastrointestinal: Admits soft on palpation. Does have tenderness right side both upper and lower quadrants along with left lower quadrant pain and right- sided CVA tenderness. No guarding or rebound tenderness. Musculoskeletal: Normal ROM, no tenderness. Strength 5/5. Sensation intact. Pulses equal bilaterally 2+. Neurological: A&O x 3. CN II-XII intact, There are no obvious motor or sensory deficits. Coordination appears grossly intact. Speech is normal. Skin: Skin is warm and dry and no rashes or lesions are noted. Psychiatric: Cooperative, appropriate mood & affect, normal judgment. Limitations: no limitations Course Vital Signs 02/27/18 02/27/18 13:38 16:31 Temperature 98.1 F Pulse Rate 93 96 Respiratory 18 18 Rate Blood Pressure 205/79 205/90 O2 Sat by Pulse 93 L 97 Oximetry Medical Decision Making - Medical Decision Making Patient's CT the abdomen and pelvis reviewed shows 1. Marked colonic stool burning with extension without dilation on the cecum and fluid-filled loops of the distal small bowel that could relate to a small bowel ileus or ileocecal valve incompetence and reflux. No evidence of an obstruction. 2. Sequela of chronic recurrent otitis with chronic ductal dilation. Patient's urinalysis does show evidence for urinary tract infection. Given 2 g of Rocephin. Patient was also given enema was able have bowel movement here in the emergency room. Is feeling better. He is supposed pick up man her prescription for [place] she understands to call her family doctor. Patient at this time is doing well be discharged home. Advised to continue to increase oral fluids. Patient will be given prescription of antibiotics to continue. Advised to follow-up with family doctor in the next 1-2 days return to emergency room if any symptoms increase or worsen. - Lab Data Result diagrams: 02/27/18 14:13 02/27/18 14:13 Lab Results 02/27/18 02/27/18 02/27/18 Range/Units 14:13 14:13 14:13 WBC 12.0 H (3.8-10.6) k/uL RBC 4.48 (3.80-5.40) m/uL Hgb 13.8 (11.4-16.0) gm/dL Hct 41.9 (34.0-46.0) % MCV 93.6 (80.0-100.0) fL MCH 30.8 (25.0-35.0) pg MCHC 32.9 (31.0-37.0) g/dL RDW 13.2 (11.5-15.5) % Plt Count 240 (150-450) k/uL Neutrophils % 84 % Lymphocytes % 9 % Monocytes % 5 % Eosinophils % 1 % Basophils % 0 % Neutrophils # 10.1 H (1.3-7.7) k/uL Lymphocytes # 1.1 (1.0-4.8) k/uL Monocytes # 0.6 (0-1.0) k/uL Eosinophils # 0.2 (0-0.7) k/uL Basophils # 0.0 (0-0.2) k/uL Sodium 140 (137-145) mmol/L Potassium 4.3 (3.5-5.1) mmol/L Chloride 106 (98-107) mmol/L Carbon Dioxide 23 (22-30) mmol/L Anion Gap 11 mmol/L BUN 15 (7-17) mg/dL Creatinine 0.90 (0.52-1.04) mg/dL Est GFR (CKD-EPI)AfAm 81 (>60 ml/min/1.73 sqM) Est GFR (CKD-EPI)NonAf 70 (>60 ml/min/1.73 sqM) Glucose 242 H (74-99) mg/dL Plasma Lactic Acid Eric 0.8 (0.7-2.0) mmol/L Calcium 9.5 (8.4-10.2) mg/dL Total Bilirubin 0.3 (0.2-1.3) mg/dL AST 15 (14-36) U/L ALT 25 (9-52) U/L Alkaline Phosphatase 81 (38-126) U/L Total Protein 7.4 (6.3-8.2) g/dL Albumin 4.4 (3.5-5.0) g/dL Amylase 38 (30-110) U/L Lipase 25 (23-300) U/L Urine Color Urine Appearance (Clear) Urine pH (5.0-8.0) Ur Specific [place] (1.001-1.035) Urine Protein (Negative) Urine Glucose (UA) (Negative) Urine Ketones (Negative) Urine Blood (Negative) Urine Nitrite (Negative) Urine Bilirubin (Negative) Urine Urobilinogen (<2.0) mg/dL Ur Leukocyte Esterase (Negative) Urine RBC (0-5) /hpf Urine WBC (0-5) /hpf Urine WBC Clumps (None) /hpf Ur Squamous Epith Cells (0-4) /hpf Urine Bacteria (None) /hpf Urine Mucus (None) /hpf Urine Yeast (Budding) (None) /hpf 02/27/18 Range/Units 15:45 WBC (3.8-10.6) k/uL RBC (3.80-5.40) m/uL Hgb (11.4-16.0) gm/dL Hct (34.0-46.0) % MCV (80.0-100.0) fL MCH (25.0-35.0) pg MCHC (31.0-37.0) g/dL RDW (11.5-15.5) % Plt Count (150-450) k/uL Neutrophils % % Lymphocytes % % Monocytes % % Eosinophils % % Basophils % % Neutrophils # (1.3-7.7) k/uL Lymphocytes # (1.0-4.8) k/uL Monocytes # (0-1.0) k/uL Eosinophils # (0-0.7) k/uL Basophils # (0-0.2) k/uL Sodium (137-145) mmol/L Potassium (3.5-5.1) mmol/L Chloride (98-107) mmol/L Carbon Dioxide (22-30) mmol/L Anion Gap mmol/L BUN (7-17) mg/dL Creatinine (0.52-1.04) mg/dL Est GFR (CKD-EPI)AfAm (>60 ml/min/1.73 sqM) Est GFR (CKD-EPI)NonAf (>60 ml/min/1.73 sqM) Glucose (74-99) mg/dL Plasma Lactic Acid Eric (0.7-2.0) mmol/L Calcium (8.4-10.2) mg/dL Total Bilirubin (0.2-1.3) mg/dL AST (14-36) U/L ALT (9-52) U/L Alkaline Phosphatase (38-126) U/L Total Protein (6.3-8.2) g/dL Albumin (3.5-5.0) g/dL Amylase (30-110) U/L Lipase (23-300) U/L Urine Color Yellow Urine Appearance Turbid H (Clear) Urine pH 6.0 (5.0-8.0) Ur Specific [place] 1.016 (1.001-1.035) Urine Protein 2+ H (Negative) Urine Glucose (UA) 3+ H (Negative) Urine Ketones Negative (Negative) Urine Blood Large H (Negative) Urine Nitrite Negative (Negative) Urine Bilirubin Negative (Negative) Urine Urobilinogen <2.0 (<2.0) mg/dL Ur Leukocyte Esterase Large H (Negative) Urine RBC 123 H (0-5) /hpf Urine WBC >182 H (0-5) /hpf Urine WBC Clumps Many H (None) /hpf Ur Squamous Epith Cells 26 H (0-4) /hpf Urine Bacteria Moderate H (None) /hpf Urine Mucus Occasional H (None) /hpf Urine Yeast (Budding) Many H (None) /hpf Disposition Clinical Impression: UTI (urinary tract infection), Abdominal pain Disposition: HOME SELF-CARE Condition: Good Instructions: Urinary Tract Infection in Women (ED) Additional Instructions: Please use medication as discussed. Please follow-up with family doctor in the next 2 days. Please return to emergency room if the symptoms increase or worsen or for any other concerns. Prescriptions: Sulfamethox-Tmp 800-160Mg [Bactrim DS 800-160 mg] 1 tab PO Q12HR #20 tab Is patient prescribed a controlled substance at d/c from ED?: No Referrals: Pavithra Ruiz MD [Primary Care Provider] - 1-2 days Time of Disposition: 18:03
[2018-02-27] MEDS: MORPHINE SULFATE 2 MG/ML SYRINGE IV STA ×2 (14:25→18:08)
[2018-02-27 14:30] LABS: Basophils % (A) 0 %; Eosinophils # (A) 0.2 k/uL (0-0.7); Eosinophils % (A) 1 %; HCT 41.9 % (34.0-46.0); HGB 13.8 gm/dL (11.4-16.0); Lymphocytes # (A) 1.1 k/uL (1.0-4.8); Lymphocytes % (A) 9 %; MCH 30.8 pg (25.0-35.0); MCHC 32.9 g/dL (31.0-37.0); MCV 93.6 fL (80.0-100.0); Mean Platelet Volume 7.3; Monocytes # (A) 0.6 k/uL (0-1.0); Monocytes % (A) 5 %; Neutrophils # (A) 10.1 k/uL (1.3-7.7); Neutrophils % (A) 84 %; Platelet Count 240 k/uL (150-450); RBC 4.48 m/uL (3.80-5.40); RDW 13.2 % (11.5-15.5)
[2018-02-27 14:38] LABS: Albumin 4.4 g/dL (3.5-5.0); Calcium 9.5 mg/dL (8.4-10.2); Potassium 4.3 mmol/L (3.5-5.1); Total Bilirubin 0.3 mg/dL (0.2-1.3); Total Protein 7.4 g/dL (6.3-8.2)
--- NOTE | 2018-02-27 15:19 | XR ---
Abdomen HISTORY: Pain, nausea and vomiting Frontal view of the abdomen on 2 images Postop changes are present. Calcifications are present suggesting old granulomatous disease within th e spleen. Patchy densities present at the lung base on the left. There is some blunting of the costop hrenic angle. No pneumoperitoneum. There are air-fluid levels without bowel distention. IMPRESSION: Correlate for enteritis. Follow-up as indicated. Possible left lower lobe atelectasis giselle sherwin pneumonia, small effusion.
--- NOTE | 2018-02-27 15:59 | CT ---
EXAMINATION TYPE: CT abdomen pelvis w con DATE OF EXAM: 02/27/2018 HISTORY: BACK PAIN/RT SIDE PAIN/VOMITING CT DLP: 292mGycm Automated Exposure Control for Dose Reduction was Utilized. CONTRAST: CT scan of the abdomen and pelvis is performed with IV Contrast, patient injected with 100 mL of Isov ue 300. COMPARISON: 03/24/2017 FINDINGS: LUNG BASES: No significant abnormality is appreciated. LIVER/GB: Liver is unremarkable. Gallbladder surgically absent. PANCREAS: There is pancreatic atrophy and calcifications within the parenchyma as well as the surroun ding vasculature with ductal dilatation likely related to chronic pancreatitis is no identifiable mcconnell creatic mass is seen. No surrounding inflammatory changes seen to suggest acute pancreatitis SPLEEN: Numerous benign calcified splenic granulomas are present throughout the parenchyma. ADRENALS: No significant abnormality is seen. KIDNEYS: Kidneys enhance symmetrically without hydronephrosis. Renal arterial calcifications are seen bilaterally, right greater than left. BOWEL: Large amount retained colonic stool limits evaluation of the bowel. No dilated large or small bowel is present. Distal small bowel loops are fluid-filled but nondilated. LYMPH NODES: No greater than 1cm abdominal or pelvic lymph nodes are appreciated. OSSEOUS STRUCTURES: No significant abnormality is seen. Mild degenerative changes of the lumbosacral junction. OTHER: Extensive calcific and noncalcific atheromatous plaquing is seen of the abdominal aorta and it s branches above the aortoiliac graft, which appears patent in nondilated measuring up to 2.4 cm. Fem oral-femoral bypass is also seen. This appears thrombosed and occluded. IMPRESSION: 1. Marked colonic stool burden with distention without dilation on the cecum and fluid-filled loops o f distal small bowel that could relate to small bowel ileus or ileocecal valve incompetence and reflu x. No evidence of obstruction. 2. Sequela of chronic pancreatitis with chronic ductal dilatation.
[2018-02-27] MEDS ORDERED: LORazepam 2 MG/ML INJ IV STA (16:08)
[2018-02-27 16:11] LABS: Appearance,Urine Turbid (Clear); Bacteria,Urine Moderate /hpf; Bilirubin,Urine Negative (Negative); Blood,Urine Large (Negative); Budding Yeast,Urine Many /hpf; Color,Urine Yellow; Glucose,Urine (UA) 3+ (Negative); Ketones,Urine Negative (Negative); Leukocyte Esterase,Urine Large (Negative); Mucus,Urine Occasional /hpf; Nitrite,Urine Negative (Negative); Protein,Urine 2+ (Negative); RBC,Urine 123 /hpf (0-5); Specific Gravity,Urine 1.016 (1.001-1.035); Squamous Epithelial Cell,Urine 26 /hpf (0-4); Urobilinogen,Urine <2.0 mg/dL (<2.0); WBC,Urine >182 /hpf (0-5)
[2018-02-27] MEDS ORDERED: cefTRIAXone 2,000 MG in SODIUM CHLORIDE 0.9% 100 ML IVPB STA (16:32)
[2018-02-27 16:35] VITALS: BP 205/90; PULSE 96
[2018-02-27] MEDS ORDERED: cefTRIAXone IN SWFI 2,000 MG/20 ML SYRINGE IVP STA (16:37)
[2018-02-27] MEDS ORDERED: MORPHINE SULFATE 2 MG/ML SYRINGE IVP STA (18:02)
== END 2018-02-27 18:40 | disposition home or self-care (01) ==
LOC: EC 13:20
DX: N39.0 Urinary tract infection, site not specified (principal); R11.2 Nausea with vomiting, unspecified; J45.909 Unspecified asthma, uncomplicated; E11.9 Type 2 diabetes mellitus without complications; M79.7 Fibromyalgia; K21.9 Gastro-esophageal reflux disease without esophagitis; E78.5 Hyperlipidemia, unspecified; I10 Essential (primary) hypertension; I25.2 Old myocardial infarction; I73.9 Peripheral vascular disease, unspecified; F17.200 Nicotine dependence, unspecified, uncomplicated; Z86.14 Personal history of Methicillin resistant Staphylococcus aureus infection; Z90.49 Acquired absence of other specified parts of digestive tract; Z95.5 Presence of coronary angioplasty implant and graft; Z79.02 Long term (current) use of antithrombotics/antiplatelets; Z79.52 Long term (current) use of systemic steroids; Z79.4 Long term (current) use of insulin; Z79.899 Other long term (current) drug therapy
CPT/HCPCS: 36415; 80053; 82150; 83605; 83690; 85025; 81001; 74018; 74177; 99284; 96374; 96375 ×3; 96376; 96361 ×4; J2060; J2405; J0696; J2270; Q9967

== ENCOUNTER 2018-03-06 09:43 | Inpatient (IN) | payer MEDICARE, OTHER ==
[2018-03-06] MEDS ORDERED: SODIUM CHLORIDE 0.9% 1,000 ML IV ONE ×3 (09:55→11:30)
[2018-03-06 10:12] LABS: Basophils # (A) 0.1 k/uL (0-0.2); Basophils % (A) 1 %; Eosinophils # (A) 0.4 k/uL (0-0.7); Eosinophils % (A) 3 %; HCT 37.9 % (34.0-46.0); HGB 12.4 gm/dL (11.4-16.0); Lymphocytes # (A) 2.4 k/uL (1.0-4.8); Lymphocytes % (A) 16 %; MCH 31.3 pg (25.0-35.0); MCHC 32.6 g/dL (31.0-37.0); MCV 95.8 fL (80.0-100.0); Mean Platelet Volume 7.3; Monocytes # (A) 0.5 k/uL (0-1.0); Monocytes % (A) 3 %; Neutrophils # (A) 11.3 k/uL (1.3-7.7); Neutrophils % (A) 76 %; Platelet Count 321 k/uL (150-450); RBC 3.95 m/uL (3.80-5.40); RDW 13.5 % (11.5-15.5); WBC 14.9 k/uL (3.8-10.6)
[2018-03-06 10:20] LABS: INR 1.1 (<1.2); Prothrombin Time 10.3 sec (9.0-12.0)
[2018-03-06 10:22] LABS: Albumin 3.8 g/dL (3.5-5.0); Calcium 9.3 mg/dL (8.4-10.2); Potassium 4.6 mmol/L (3.5-5.1); Total Bilirubin 0.3 mg/dL (0.2-1.3); Total Protein 6.4 g/dL (6.3-8.2)
[2018-03-06] MEDS ORDERED: SODIUM CHLORIDE 0.9% 1,000 ML IV STA (10:28)
--- NOTE | 2018-03-06 10:40 | ED ---
Female Urogenital HPI - General Source: patient, family, RN notes reviewed, old records reviewed Mode of arrival: wheelchair Limitations: no limitations <Gwen Chappell - Last Filed: 03/06/18 11:06> <Kelvin Mckeon - Last Filed: 03/06/18 11:15> - General Chief complaint: Vaginal Bleeding Stated complaint: Bleeding Time Seen by Provider: 03/06/18 09:54 - History of Present Illness Initial comments: 62-year-old female presents emergency Department chief complaint of vaginal bleeding onset 2 hours ago. She had a history of a D&C procedure current hospital by Dr. Beltrán on February 18. She reports she had minimal bleeding afterwards. She states she's been addressed feeling well. Has a history of heart disease, is currently on Plavix. She states over the past 2 hours she's been bleeding through multiple clothing and has had severe bleeding will not stop. Patient states she has no significant abdominal pain. Reports no intercourse or trauma or heavy lifting a cause this. Patient reports she's feeling weak and dizzy. (Gwen Chappell) - Related Data Home Medications Medication Instructions Recorded Confirmed Clopidogrel [Plavix] 75 mg PO DAILY 08/19/16 03/06/18 Simvastatin [Zocor] 20 mg PO HS 08/19/16 03/06/18 predniSONE 5 mg PO DAILY 08/19/16 03/06/18 Albuterol Sulfate [Proair Hfa] 2 puff INHALATION RT-QID PRN 03/24/17 03/06/18 HYDROcodone/APAP 10-325MG [[place] 1 tab PO BID PRN 03/24/17 03/06/18 10-325] Hydroxychloroquine Sulfate 200 mg PO BID 03/24/17 03/06/18 [Plaquenil] Insulin NPH/Reg Insulin 70/30 28 unit SQ BID 03/24/17 03/06/18 [humuLIN 70/30 VIAL] amLODIPine [Norvasc] 2.5 mg PO DAILY 03/24/17 03/06/18 Gabapentin [Neurontin] 400 mg PO QID 05/22/17 03/06/18 tiZANidine [Zanaflex] 2 mg PO Q6H PRN 05/22/17 03/06/18 Cilostazol [Pletal] 100 mg PO BID 02/27/18 03/06/18 Famotidine [Pepcid] 20 mg PO DAILY 02/27/18 03/06/18 Montelukast [Singulair] 10 mg PO HS 02/27/18 03/06/18 Previous Rx's Medication Instructions Recorded Sulfamethox-Tmp 800-160Mg [Bactrim 1 tab PO Q12HR #20 tab 02/27/18 DS 800-160 mg] Allergies Allergy/AdvReac Type Severity Reaction Status Date / Time No Known Allergies Allergy Verified 03/06/18 10:12 Review of Systems ROS Other: All systems not noted in ROS Statement are negative. <Gwen Chappell - Last Filed: 03/06/18 11:06> ROS Other: All systems not noted in ROS Statement are negative. <Kelvin Mckeon - Last Filed: 03/06/18 11:15> ROS Statement: Those systems with pertinent positive or pertinent negative responses have been documented in the HPI. Past Medical History Past Medical History: Asthma, Chest Pain / Angina, Diabetes Mellitus, Fibromyalgia, GERD/Reflux, Hyperlipidemia, Hypertension, Myocardial Infarction ( [place]), Vascular Disorder Additional Past Medical History / Comment(s): lupus, sinusitis, low back pain- herniated discs, PVD, bilateral tinnitis, [place] X3 Last Myocardial Infarction Date:: unknown History of Any Multi-Drug Resistant Organisms: MRSA Date of last positivie culture/infection: 2010 MDRO Source:: right axilla Past Surgical History: Section, Cholecystectomy, Heart Catheterization With Stent Additional Past Surgical History / Comment(s): total w cardiac stents, colonoscopy, I&D R gluteal abscess, R salvary gland removed due to precancerous , uterus scrape Past Anesthesia/Blood Transfusion Reactions: No Reported Reaction Date of Last Stent Placement:: 08/01/05 Past Psychological History: Depression Smoking Status: Current every day smoker Past Alcohol Use History: None Reported Past Drug Use History: None Reported - Past Family History Father Additional Family Medical History / Comment(s): . Mother Family Medical History: Cancer Additional Family Medical History / Comment(s): . Sister(s) Family Medical History: Cancer <Gwen Chappell - Last Filed: 03/06/18 11:06> General Exam Limitations: no limitations Head exam: Present: atraumatic, normocephalic, normal inspection Eye exam: Present: normal appearance, PERRL, EOMI. Absent: scleral icterus, conjunctival injection, periorbital swelling ENT exam: Present: normal exam, mucous membranes moist Neck exam: Present: normal inspection. Absent: tenderness, meningismus, lymphadenopathy Respiratory exam: Present: normal lung sounds bilaterally. Absent: respiratory distress, wheezes, rales, rhonchi, stridor Cardiovascular Exam: Present: regular rate, normal rhythm, normal heart sounds. Absent: systolic murmur, diastolic murmur, rubs, gallop, clicks GI/Abdominal exam: Present: soft, normal bowel sounds. Absent: distended, tenderness, guarding, rebound, rigid External exam: Absent: normal external exam Speculum exam: Present: vaginal bleeding (She has severe vaginal bleeding. Unable to identify the source of the bleeding). Absent: normal speculum exam Extremities exam: Present: normal inspection, full ROM, normal capillary refill. Absent: tenderness, pedal edema, joint swelling, calf tenderness Back exam: Present: normal inspection, full ROM Neurological exam: Present: alert, oriented X3, CN II-XII intact Psychiatric exam: Present: normal affect, normal mood Skin exam: Present: warm, dry, intact, normal color. Absent: rash <Gwen Chappell - Last Filed: 03/06/18 11:06> <Kelvin Mckeon - Last Filed: 03/06/18 11:15> - General Exam Comments Initial Comments: 8-year-old female. Appears somewhat pale. Alert and oriented. (Gwen Chappell ) Course <Gwen Chappell - Last Filed: 03/06/18 11:06> <Kelvin Mckeon - Last Filed: 03/06/18 11:15> Vital Signs 03/06/18 09:45 Temperature 97.7 F Pulse Rate 112 H Respiratory 20 Rate Blood Pressure 127/79 O2 Sat by Pulse 98 Oximetry - Reevaluation(s) Reevaluation #1: 03/06/18 10:41 Patient started on a 2 L bolus. FFP and 2 units of PRBCs have been ordered due to severe bleeding. Dr. Mckeon discussed the case with Dr. Ortega. He will be here shortly. (Gwen Chappell) Medical Decision Making - Lab Data Result diagrams: 03/06/18 10:00 03/06/18 10:00 <Gwen Chappell - Last Filed: 03/06/18 11:06> - Lab Data Result diagrams: 03/06/18 10:00 03/06/18 10:00 <Kelvin Mckeon - Last Filed: 03/06/18 11:15> - Medical Decision Making 8-year-old female with severe vaginal bleeding onset 2 hours ago. On Plavix. Pelvic exam shows severe bleeding. On a unable to identify the source. Patient is given 2 units of PRBCs and one of FFP. Dr. Ortega came down and evaluated the Patient and Patient was within taken directly to surgery. He went to check on Patient 11:06 AM and she was already in surgery.. (Gwen Chappell) Attending note, medical decision making; this is a 62-year-old female who reports having had previous biopsy was proven positive for cervical cancer. Subsequent to that eye E 16 days ago she had laser surgery on the cervix remove or treat the cancer. She reports did not have any cervical bleeding afterwards. The patient is visiting this area and camping. She reports 2 hours prior to coming emergency room she started having heavy vaginal bleeding which continued in the emergency room. The patient's vital signs were checked. Her heart rate was up to 112 blood pressure was 127/79. When asked the patient reports that she was feeling a little dizzy. We're unable to view the cervix because of the amount of blood in the vault. The case is discussed immediately with on-call CYCLE LIAISON Dr. Yuen. The patient has been taken to the operating room. Dr. Mckeon (Kelvin Mckeon) - Lab Data Lab Results 03/06/18 03/06/18 03/06/18 Range/Units 10:00 10:00 10:00 WBC 14.9 H (3.8-10.6) k/uL RBC 3.95 (3.80-5.40) m/uL Hgb 12.4 (11.4-16.0) gm/dL Hct 37.9 (34.0-46.0) % MCV 95.8 (80.0-100.0) fL MCH 31.3 (25.0-35.0) pg MCHC 32.6 (31.0-37.0) g/dL RDW 13.5 (11.5-15.5) % Plt Count 321 (150-450) k/uL Neutrophils % 76 % Lymphocytes % 16 % Monocytes % 3 % Eosinophils % 3 % Basophils % 1 % Neutrophils # 11.3 H (1.3-7.7) k/uL Lymphocytes # 2.4 (1.0-4.8) k/uL Monocytes # 0.5 (0-1.0) k/uL Eosinophils # 0.4 (0-0.7) k/uL Basophils # 0.1 (0-0.2) k/uL PT 10.3 (9.0-12.0) sec INR 1.1 (<1.2) APTT 24.0 (22.0-30.0) sec Sodium 139 (137-145) mmol/L Potassium 4.6 (3.5-5.1) mmol/L Chloride 107 (98-107) mmol/L Carbon Dioxide 23 (22-30) mmol/L Anion Gap 9 mmol/L BUN 18 H (7-17) mg/dL Creatinine 0.90 (0.52-1.04) mg/dL Est GFR (CKD-EPI)AfAm 81 (>60 ml/min/1.73 sqM) Est GFR (CKD-EPI)NonAf 70 (>60 ml/min/1.73 sqM) Glucose 303 H (74-99) mg/dL Calcium 9.3 (8.4-10.2) mg/dL Total Bilirubin 0.3 (0.2-1.3) mg/dL AST 16 (14-36) U/L ALT 27 (9-52) U/L Alkaline Phosphatase 56 (38-126) U/L Total Protein 6.4 (6.3-8.2) g/dL Albumin 3.8 (3.5-5.0) g/dL Blood Type Blood Type Recheck Antibody Screen Crossmatch Spec Expiration Date 03/06/18 Range/Units 10:00 WBC (3.8-10.6) k/uL RBC (3.80-5.40) m/uL Hgb (11.4-16.0) gm/dL Hct (34.0-46.0) % MCV (80.0-100.0) fL MCH (25.0-35.0) pg MCHC (31.0-37.0) g/dL RDW (11.5-15.5) % Plt Count (150-450) k/uL Neutrophils % % Lymphocytes % % Monocytes % % Eosinophils % % Basophils % % Neutrophils # (1.3-7.7) k/uL Lymphocytes # (1.0-4.8) k/uL Monocytes # (0-1.0) k/uL Eosinophils # (0-0.7) k/uL Basophils # (0-0.2) k/uL PT (9.0-12.0) sec INR (<1.2) APTT (22.0-30.0) sec Sodium (137-145) mmol/L Potassium (3.5-5.1) mmol/L Chloride (98-107) mmol/L Carbon Dioxide (22-30) mmol/L Anion Gap mmol/L BUN (7-17) mg/dL Creatinine (0.52-1.04) mg/dL Est GFR (CKD-EPI)AfAm (>60 ml/min/1.73 sqM) Est GFR (CKD-EPI)NonAf (>60 ml/min/1.73 sqM) Glucose (74-99) mg/dL Calcium (8.4-10.2) mg/dL Total Bilirubin (0.2-1.3) mg/dL AST (14-36) U/L ALT (9-52) U/L Alkaline Phosphatase (38-126) U/L Total Protein (6.3-8.2) g/dL Albumin (3.5-5.0) g/dL Blood Type A Positive Blood Type Recheck CABO Indicated Antibody Screen NEGATIVE Crossmatch See Detail Spec Expiration Date 03/09/2018 - 2299 Disposition Is patient prescribed a controlled substance at d/c from ED?: No When asked, does pt state using other controlled substances?: No If prescribed controlled substance>3 days was MAPS reviewed?: No If opioid is for acute pain is fill amount 7 days or less?: No If Rx opioid, was Start Talking consent form obtained?: No Time of Disposition: 11:07 <Gwen Chappell - Last Filed: 03/06/18 11:06> <Kelvin Mckeon - Last Filed: 03/06/18 11:15> Clinical Impression: Vaginal bleeding Disposition: ADMITTED IP TO THIS HOSP Condition: Stable Referrals: Pavithra Ruiz MD [Primary Care Provider] - 1-2 days
--- NOTE | 2018-03-06 11:02 | P.HPOB ---
History of Present Illness H&P Date: 03/06/18 Chief Complaint: Vaginal bleeding Megan is a 62-year-old female with multiple medical problems who arrived to the emergency room at [facility] planning a vaginal bleeding. She relates that on February 18 she underwent some type of gynecologic procedure with a Dr. Kramer out of one of the hospitals in [place] but she is not sure exactly what she had done. Following the procedure which was done for some type of cervical dysplasia by her description she had no bleeding. However this morning she woke up and had a significant quantity of bright red bleeding that seem to be gushing out. She was brought immediately to [facility] where this was verified. I was called in to evaluate the patient. She is noted to have large quantity of bright red blood coming from her vagina I did pack the vagina office that we can come the operating room to be able to better visualize bleeding. It is unclear what exactly I'm going to be able to do to stop the bleeding and we'll also obviously depend on where the bleeding is actually coming from. She is scheduled for an exam under anesthesia possible D& C possible even potentially hysterectomy but I do not feel this is very good option since she has so many medical issues and complications. Past Medical History Past Medical History: Asthma, Chest Pain / Angina, Diabetes Mellitus, Fibromyalgia, GERD/Reflux, Hyperlipidemia, Hypertension, Myocardial Infarction ( [place]), Vascular Disorder Additional Past Medical History / Comment(s): lupus, sinusitis, low back pain- herniated discs, PVD, bilateral tinnitis, [place] X3 Last Myocardial Infarction Date:: unknown History of Any Multi-Drug Resistant Organisms: MRSA Date of last positivie culture/infection: 2010 MDRO Source:: right axilla Past Surgical History: Section, Cholecystectomy, Heart Catheterization With Stent Additional Past Surgical History / Comment(s): total w cardiac stents, colonoscopy, I&D R gluteal abscess, R salvary gland removed due to precancerous , uterus scrape Past Anesthesia/Blood Transfusion Reactions: No Reported Reaction Date of Last Stent Placement:: 08/01/05 Past Psychological History: Depression Smoking Status: Current every day smoker Past Alcohol Use History: None Reported Past Drug Use History: None Reported - Past Family History Father Additional Family Medical History / Comment(s): . Mother Family Medical History: Cancer Additional Family Medical History / Comment(s): . Sister(s) Family Medical History: Cancer Medications and Allergies Home Medications Medication Instructions Recorded Confirmed Type Clopidogrel [Plavix] 75 mg PO DAILY 08/19/16 03/06/18 History Simvastatin [Zocor] 20 mg PO HS 08/19/16 03/06/18 History predniSONE 5 mg PO DAILY 08/19/16 03/06/18 History Albuterol Sulfate [Proair Hfa] 2 puff INHALATION RT-QID PRN 03/24/17 03/06/18 History HYDROcodone/APAP 10-325MG [[place] 1 tab PO BID PRN 03/24/17 03/06/18 History 10-325] Hydroxychloroquine Sulfate 200 mg PO BID 03/24/17 03/06/18 History [Plaquenil] Insulin NPH/Reg Insulin 70/30 28 unit SQ BID 03/24/17 03/06/18 History [humuLIN 70/30 VIAL] amLODIPine [Norvasc] 2.5 mg PO DAILY 03/24/17 03/06/18 History Gabapentin [Neurontin] 400 mg PO QID 05/22/17 03/06/18 History tiZANidine [Zanaflex] 2 mg PO Q6H PRN 05/22/17 03/06/18 History Cilostazol [Pletal] 100 mg PO BID 02/27/18 03/06/18 History Famotidine [Pepcid] 20 mg PO DAILY 02/27/18 03/06/18 History Montelukast [Singulair] 10 mg PO HS 02/27/18 03/06/18 History Sulfamethox-Tmp 800-160Mg [Bactrim 1 tab PO Q12HR #20 tab 02/27/18 03/06/18 Rx DS 800-160 mg] Allergies Allergy/AdvReac Type Severity Reaction Status Date / Time No Known Allergies Allergy Verified 03/06/18 10:12 Exam Osteopathic Statement: *. No significant issues noted on an osteopathic structural exam other than those noted in the History and Physical/Consult. - Vital Signs Vital signs: Vital Signs Temp Pulse Resp BP Pulse Ox 03/06/18 09:45 97.7 F 112 H 20 127/79 98 Intake and Output 03/05/18 03/06/18 03/06/18 22:59 06:59 14:59 Other: Weight 63.503 kg - OBG Physical Exam Abdomen: bowel sounds normal, no diffuse tenderness, no bruit present, no guarding noted, no hepatomegaly, no splenomegaly, no mass Vulva: both: normal Vagina: To much blood for evaluation. Results Result Diagrams: 03/06/18 10:00 03/06/18 10:00 Abnormal Lab Results - Last 24 Hours (Table) 03/06/18 03/06/18 03/06/18 Range/Units 10:00 10:00 10:00 WBC 14.9 H (3.8-10.6) k/uL Neutrophils # 11.3 H (1.3-7.7) k/uL BUN 18 H (7-17) mg/dL Glucose 303 H (74-99) mg/dL Crossmatch See Detail
[2018-03-06] MEDS ORDERED: fentaNYL (PF) 50 MCG/ML 2 ML AMP ONE (11:19)
[2018-03-06] MEDS ORDERED: MIDAZOLAM 2 MG/2 ML VIAL ONE (11:19)
[2018-03-06] MEDS ORDERED: PROPOFOL 10 MG/ML 20 ML VIAL IV ONE (11:19)
[2018-03-06] MEDS ORDERED: IV FLUID CONTINUATION 100 ML IV ONE (11:19)
[2018-03-06] MEDS ORDERED: IV FLUID CONTINUATION 300 ML IV ONE (11:19)
[2018-03-06] MEDS ORDERED: LIDOCAINE 1% INJ 10MG/ML (20 ML MDV) ONE (11:19)
[2018-03-06] MEDS ORDERED: SUCCINYLCHOLINE CHLORIDE 100 MG/5 ML SYR IV ONE (11:19)
[2018-03-06] MEDS ORDERED: LACTATED RINGERS 1,000 ML IV ONE (11:35)
[2018-03-06] MEDS ORDERED: FERRIC SUBSULFATE (MONSELS) JAR TOPICAL ONE (11:51)
[2018-03-06] MEDS ORDERED: BACITRACIN 500 UNIT/GM OINT 28.4 GM TUBE TOPICAL ONE (11:52)
[2018-03-06] MEDS ORDERED: ALBUTEROL NEBULIZED 2.5 MG/3 ML INHALATION PRN (11:59)
--- NOTE | 2018-03-06 12:07 | P.OP ---
Date of Procedure: 03/06/18 Preoperative Diagnosis: Vaginal bleeding following a cervical surgery Postoperative Diagnosis: Same Procedure(s) Performed: Exam under anesthesia was controlled bleeding Anesthesia: HALEIGH Surgeon: Ming Yuen Estimated Blood Loss (ml): 50 Pathology: none sent Condition: stable Disposition: floor Operative Findings: Cervix grossly appears to have had a LEEP procedure other procedure that is significantly different degraded her cervical tissues Description of Procedure: Patient was taken to the operating suite where a general anesthetic was found be adequate. She was positioned in a dorsal lithotomy position. Initially a weighted speculum was inserted into the vagina and a anterior retractor was used to bring the bladder out of the operative field. Significant quantity of blood was noted immediately upon entering the vagina and the vaginal packing placed in the emergency room was removed. I did then grasped the posterior aspect of the cervix as the anterior aspect of the cervix was very difficult to get to and was actually tucked up underneath the bridge of the bladder. We were able to fully visualize and by using a ring forcep as well controlled bleeding on the cervical margins. Cervix was then shifted as far to the patient 's right as possible and a 0 Vicryl suture was placed between 1 and 4 and was tied down. Similar fashion this the cervix was then rotated as far to the patient's left as possible and as such was placed between 11 and 7 and tied down this almost immediately controlled what bleeding was there. The remaining cervix tissues were then electrofulgurated with a ball tip on a Bovie cautery to cauterize any small areas that were bleeding from her prior surgery. Once this was accomplished excellent hemostasis was felt to be obtained. Monsel solution was then applied. As a precaution due to the fact that she has lost 4 g of hemoglobin in approximately 2 or timeframe and since she did not have any bleeding prior to this morning the vagina was packed with iodoform gauze with bacitracin. A Christianson catheter was then placed and we'll plan to leave this in place today and remove in the morning tomorrow so it has time to make sure that she has no further bleeding. Patient overall tolerated the procedure very well all instruments were then removed sponge, lap, needle counts were all correct 2. Patient was then taken to the recovery room in stable condition.
[2018-03-06 12:25] LABS: Glucose,Whole Blood 204 mg/dL (75-99)
[2018-03-06] MEDS: HYDROmorphone 1 MG/ML 1 ML SYRINGE IVP ONE ×5 (12:26→13:09)
[2018-03-06] MEDS ORDERED: INSULIN ASPART 100 UNIT/ML 1 ML 10 ML VIAL SQ ONE (12:35)
[2018-03-06] MEDS ORDERED: LABETALOL 5 MG/ML VIAL MDV IVP ONE (12:39)
[2018-03-06] MEDS ORDERED: ONDANSETRON 4 MG/2 ML VIAL IVP PRN (14:36)
[2018-03-06] MEDS: GABAPENTIN 400 MG CAP PO SCH ×3 (14:47→20:55)
[2018-03-06] MEDS: SODIUM CHLORIDE 0.9% 1,000 ML IV ONE ×2 (14:47→14:49)
[2018-03-06] MEDS: SODIUM CHLORIDE 0.9% 1,000 ML IV SCH (15:39)
[2018-03-06 17:16] LABS: Glucose,Whole Blood 176 mg/dL (75-99)
[2018-03-06] MEDS: INSULIN ASPART 100 UNIT/ML 1 ML 10 ML VIAL SQ SCH ×2 (17:41→22:53)
[2018-03-06] MEDS: INSULIN NPH/REG INSULIN 70/30 300 UNIT/3 ML VIAL SQ SCH (17:41)
--- NOTE | 2018-03-06 17:53 | P.CONS ---
History of Present Illness - Reason for Consult Consult date: 03/06/18 Medical management of hypertension and other medical problems - Chief Complaint As an week - History of Present Illness Patient is a 62-year-old female known history of hypertension, diabetes type 2, fibromyalgia and multiple other medical problems including coronary artery disease and stent placement 2 came to ER with complaints of vaginal bleed. Patient apparently underwent gynecological procedure due to cervical dysplasia. Patient woke up yesterday morning with significant bleeding from vagina. Patient was brought to the hospital for further evaluation. Patient underwent D &C and vaginal packing by FRONT END SOFTWARE DEVELOPER. Currently a marroquin denied any complaints of chest pain or shortness of breath. No headache or dizziness or lightheadedness. No nausea vomiting or abdominal pain. Blood pressure is controlled currently. No fever no chills. Review of Systems Constitutional: Patient denies any fever or chills . No generalized weakness or weight loss. Abdomen: Patient denied nausea vomiting and diarrhea and abdominal pain. Cardiovascular: Patient denies any chest pain or short of breath no palpitations. Respiratory: patient denied any cough is from production. No shortness of breath Neurologic: Patient denied any numbness or tingling headache. Musculoskeletal: Patient denies any complaints of joint swelling or deformity. Skin: Negative Psychiatric: Negative Endocrine: No heat or cold intolerance. No recent weight gain. Genitourinary: No dysuria or hematuria. Vaginal bleed. All other 14 point ROS negative except the above Past Medical History Past Medical History: Asthma, Chest Pain / Angina, Diabetes Mellitus, Fibromyalgia, GERD/Reflux, Hyperlipidemia, Hypertension, Myocardial Infarction ( MS), Vascular Disorder Additional Past Medical History / Comment(s): lupus, sinusitis, low back pain- herniated discs, PVD, bilateral tinnitis, MS X3 Last Myocardial Infarction Date:: unknown History of Any Multi-Drug Resistant Organisms: None Reported, MRSA Year Discovered:: 2010 MDRO Source:: right axilla Past Surgical History: Section, Cholecystectomy, Heart Catheterization With Stent Additional Past Surgical History / Comment(s): total w cardiac stents, colonoscopy, I&D R gluteal abscess, R salvary gland removed due to precancerous , uterus scrape Past Anesthesia/Blood Transfusion Reactions: No Reported Reaction Date of Last Stent Placement:: 08/01/05 Past Psychological History: Depression Additional Psychological History / Comment(s): . Smoking Status: Current every day smoker Past Alcohol Use History: None Reported Additional Past Alcohol Use History / Comment(s): started smoking at age 16. smokes 1/2 PPD Past Drug Use History: None Reported - Past Family History Father Additional Family Medical History / Comment(s): . Mother Family Medical History: Cancer Additional Family Medical History / Comment(s): . Sister(s) Family Medical History: Cancer Medications and Allergies Home Medications Medication Instructions Recorded Confirmed Type Clopidogrel [Plavix] 75 mg PO DAILY 08/19/16 03/06/18 History Simvastatin [Zocor] 20 mg PO HS 08/19/16 03/06/18 History predniSONE 5 mg PO DAILY 08/19/16 03/06/18 History Albuterol Sulfate [Proair Hfa] 2 puff INHALATION RT-QID PRN 03/24/17 03/06/18 History HYDROcodone/APAP 10-325MG [[place] 1 tab PO BID PRN 03/24/17 03/06/18 History 10-325] Hydroxychloroquine Sulfate 200 mg PO BID 03/24/17 03/06/18 History [Plaquenil] Insulin NPH/Reg Insulin 70/30 28 unit SQ BID 03/24/17 03/06/18 History [humuLIN 70/30 VIAL] amLODIPine [Norvasc] 2.5 mg PO DAILY 03/24/17 03/06/18 History Gabapentin [Neurontin] 400 mg PO QID 05/22/17 03/06/18 History tiZANidine [Zanaflex] 2 mg PO Q6H PRN 05/22/17 03/06/18 History Cilostazol [Pletal] 100 mg PO BID 02/27/18 03/06/18 History Famotidine [Pepcid] 20 mg PO DAILY 02/27/18 03/06/18 History Montelukast [Singulair] 10 mg PO HS 02/27/18 03/06/18 History Sulfamethox-Tmp 800-160Mg [Bactrim 1 tab PO Q12HR #20 tab 02/27/18 03/06/18 Rx DS 800-160 mg] Allergies Allergy/AdvReac Type Severity Reaction Status Date / Time No Known Allergies Allergy Verified 03/06/18 10:12 Physical Exam Vitals: Vital Signs Temp Pulse Pulse Resp BP BP Pulse Ox 03/06/18 13:45 79 16 146/71 100 03/06/18 13:30 77 16 136/64 100 03/06/18 13:15 84 16 157/74 100 03/06/18 13:00 80 16 167/81 100 03/06/18 12:45 81 18 176/84 100 03/06/18 12:30 100 18 204/97 100 03/06/18 12:15 96.8 F L 102 H 16 183/90 98 03/06/18 11:15 109 H 20 170/76 100 03/06/18 10:48 108 H 20 129/69 100 03/06/18 09:45 97.7 F 112 H 20 127/79 98 Intake and Output 03/06/18 03/06/18 03/06/18 06:59 14:59 22:59 Intake Total 2009 Output Total 350 Balance 1660 Intake: IV 1700 Blood Product 310 Rc As-1 Unit 310 [id number] Output: Urine 300 Estimated Blood Loss 50 Other: Weight 63.503 kg PHYSICAL EXAMINATION: Patient is lying in the bed comfortably, no acute distress, awake alert and oriented.. HEENT: Normocephalic. Neck is supple. Pupils reactive. Nostrils clear. Oral cavity is moist. Ears reveal no drainage. Neck reveals no JVD, carotid bruits, or thyromegaly. CHEST EXAMINATION: Trachea is central. Symmetrical expansion. Lung roque clear to auscultation and percussion. CARDIAC: Normal S1, S2 with no gallops. No murmurs ABDOMEN: Soft. Bowel sounds normal. No organomegaly. No abdominal bruits. Extremities: reveal no edema. No clubbing or cyanosis Neurologically awake, alert, oriented x3 with well-coordinated movements. No focal deficits noted Skin: No rash or skin lesions. Psychiatric: Coperative. Nonsuicidal Musculoskeletal: No joint swelling or deformity. Normal range of motion. Results CBC & Chem 7: 03/06/18 10:00 03/06/18 10:00 Labs: Abnormal Lab Results - Last 24 Hours (Table) 03/06/18 03/06/18 03/06/18 Range/Units 10:00 10:00 10:00 WBC 14.9 H (3.8-10.6) k/uL Neutrophils # 11.3 H (1.3-7.7) k/uL BUN 18 H (7-17) mg/dL Glucose 303 H (74-99) mg/dL POC Glucose (mg/dL) (75-99) mg/dL Crossmatch See Detail 03/06/18 Range/Units 12:23 WBC (3.8-10.6) k/uL Neutrophils # (1.3-7.7) k/uL BUN (7-17) mg/dL Glucose (74-99) mg/dL POC Glucose (mg/dL) 204 H (75-99) mg/dL Crossmatch Assessment and Plan Assessment: Vaginal bleed with recent history of procedure due to cervical dysplasia. Status post D&C and packing. Diabetes type 2. Insulin-dependent patient does take insulin 70/30, 28 units twice a day which will be continued. Hypertension controlled. Will monitor closely due to pain medications and surgical procedure. Lupus. Continue with the Paxil and prednisone 5 mg daily Leukocytosis on admission likely reactive. GERD Fibromyalgia Hyperlipidemia History of MS Coronary artery disease status post stent placement 2 Low back pain chronic with herniated disc Peripheral vascular disease. Currently everyday smoker DVT prophylaxis with SCDs Plan: Patient will be continued on insulin regimen along with blood pressure medications. Will monitor closely. Current with home medications. Monitor H& H and repeat CBC in the morning to follow-up WBC count. Pain management and bowel regimen. GI and DVT prophylaxis. Further recommendations based on the clinical course. Thank you for your consult Time with Patient: Greater than 30
[2018-03-06 19:05] LABS: Basophils % (A) 0 %; Eosinophils # (A) 0.2 k/uL (0-0.7); Eosinophils % (A) 1 %; HCT 31.8 % (34.0-46.0); HGB 10.3 gm/dL (11.4-16.0); Lymphocytes # (A) 1.5 k/uL (1.0-4.8); Lymphocytes % (A) 10 %; MCH 31.2 pg (25.0-35.0); MCHC 32.5 g/dL (31.0-37.0); MCV 96.2 fL (80.0-100.0); Mean Platelet Volume 7.4; Monocytes # (A) 0.6 k/uL (0-1.0); Monocytes % (A) 4 %; Neutrophils # (A) 12.4 k/uL (1.3-7.7); Neutrophils % (A) 84 %; Platelet Count 218 k/uL (150-450); RDW 13.6 % (11.5-15.5); WBC 14.7 k/uL (3.8-10.6)
[2018-03-06 20:12] LABS: Glucose,Whole Blood 82 mg/dL (75-99)
[2018-03-06] MEDS: CILOSTAZOL 100 MG TAB PO SCH (20:38)
[2018-03-06] MEDS: SULFAMETHOX-TMP 800-160MG 1 EACH TAB PO SCH (20:39)
[2018-03-06] MEDS: HYDROXYCHLOROQUINE SULFATE 200 MG TAB PO SCH (20:39)
[2018-03-06] MEDS ORDERED: ATORVASTATIN 10 MG TAB PO SCH (21:00)
[2018-03-06] MEDS ORDERED: MONTELUKAST 10 MG TAB PO SCH (21:00)
[2018-03-06] MEDS: HYDROcodone/APAP 10-325MG 1 EACH TAB PO PRN (22:19)
[2018-03-07 01:07] LABS: Hemoglobin A1C 7.1 % (4.0-6.0)
[2018-03-07] MEDS: SODIUM CHLORIDE 0.9% 1,000 ML IV SCH ×2 (03:40→10:40)
[2018-03-07] MEDS: HYDROcodone/APAP 10-325MG 1 EACH TAB PO PRN (05:13)
[2018-03-07 07:28] LABS: Glucose,Whole Blood 85 mg/dL (75-99)
[2018-03-07] MEDS: INSULIN ASPART 100 UNIT/ML 1 ML 10 ML VIAL SQ SCH (08:48)
[2018-03-07 08:54] VITALS: BP 152/70; PULSE 93; RESP 18; TEMP 98.2
[2018-03-07] MEDS ORDERED: FAMOTIDINE 20 MG TAB PO SCH (09:00)
[2018-03-07] MEDS ORDERED: CLOPIDOGREL 75 MG TAB PO SCH (09:00)
[2018-03-07] MEDS ORDERED: predniSONE 5 MG TAB PO SCH (09:00)
[2018-03-07] MEDS ORDERED: amLODIPine 2.5 MG TAB PO SCH (09:00)
[2018-03-07] MEDS: INSULIN NPH/REG INSULIN 70/30 300 UNIT/3 ML VIAL SQ SCH (09:03)
[2018-03-07] MEDS: HYDROXYCHLOROQUINE SULFATE 200 MG TAB PO SCH (09:14)
[2018-03-07] MEDS: SULFAMETHOX-TMP 800-160MG 1 EACH TAB PO SCH (09:14)
[2018-03-07] MEDS: GABAPENTIN 400 MG CAP PO SCH (09:14)
[2018-03-07] MEDS: CILOSTAZOL 100 MG TAB PO SCH (09:14)
--- NOTE | 2018-03-07 09:44 | P.DS ---
Providers Date of admission: 03/06/18 11:39 Expected date of discharge: 03/07/18 Attending physician: Ming Yuen Consults: 03/06/18 12:03 Consult Physician Stat Consulting Provider: Edgar Franco Consult Reason/Comments: medical management Do you want consulting provider notified?: Yes Primary care physician: Pavithra [facility] Course: Allises doing very well today postop day 1 from prepare and stop of bleeding from her cervix. Vaginal packing was removed this morning and no bleeding is noted on the vaginal packing and she is no active bleeding at this time. Christianson cath was also removed. We'll plan discharged home later today. Her instructions are to follow up with her certified medical transcriptionist Dr. Jasson Tse on Friday or Friday via phone and have her see her within the next week for reevaluation. She is aware to return should she have any more bleeding and all the questions are answered for her at this time. We'll plan discharged home later today once cleared from medicine. Patient Condition at Discharge: Good Plan - Discharge Summary Discharge Rx Participant: No New Discharge Prescriptions: No Action predniSONE 5 mg PO DAILY Clopidogrel [Plavix] 75 mg PO DAILY Simvastatin [Zocor] 20 mg PO HS Albuterol Sulfate [Proair Hfa] 2 puff INHALATION RT-QID PRN PRN Reason: Shortness Of Breath Hydroxychloroquine Sulfate [Plaquenil] 200 mg PO BID amLODIPine [Norvasc] 2.5 mg PO DAILY HYDROcodone/APAP 10-325MG [[place] 10-325] 1 tab PO BID PRN PRN Reason: Pain Insulin NPH/Reg Insulin 70/30 [humuLIN 70/30 VIAL] 28 unit SQ BID Gabapentin [Neurontin] 400 mg PO QID tiZANidine [Zanaflex] 2 mg PO Q6H PRN PRN Reason: muscle spasms Cilostazol [Pletal] 100 mg PO BID Montelukast [Singulair] 10 mg PO HS Famotidine [Pepcid] 20 mg PO DAILY Sulfamethox-Tmp 800-160Mg [Bactrim DS 800-160 mg] 1 tab PO Q12HR #20 tab Discharge Medication List Clopidogrel [Plavix] 75 mg PO DAILY 08/19/16 [History] Simvastatin [Zocor] 20 mg PO HS 08/19/16 [History] predniSONE 5 mg PO DAILY 08/19/16 [History] Albuterol Sulfate [Proair Hfa] 2 puff INHALATION RT-QID PRN 03/24/17 [History] HYDROcodone/APAP 10-325MG [[place] 10-325] 1 tab PO BID PRN 03/24/17 [History] Hydroxychloroquine Sulfate [Plaquenil] 200 mg PO BID 03/24/17 [History] Insulin NPH/Reg Insulin 70/30 [humuLIN 70/30 VIAL] 28 unit SQ BID 03/24/17 [ History] amLODIPine [Norvasc] 2.5 mg PO DAILY 03/24/17 [History] Gabapentin [Neurontin] 400 mg PO QID 05/22/17 [History] tiZANidine [Zanaflex] 2 mg PO Q6H PRN 05/22/17 [History] Cilostazol [Pletal] 100 mg PO BID 02/27/18 [History] Famotidine [Pepcid] 20 mg PO DAILY 02/27/18 [History] Montelukast [Singulair] 10 mg PO HS 02/27/18 [History] Sulfamethox-Tmp 800-160Mg [Bactrim DS 800-160 mg] 1 tab PO Q12HR #20 tab [Rx] Follow up Appointment(s)/Referral(s): Pavithra Ruiz MD [Primary Care Provider] - 1-2 days Jasson Tse MD [REFERRING] - 1 Week Activity/Diet/Wound Care/Special Instructions: Complete pelvic rest. Return to the emergency room or notify her certified medical transcriptionist for any more bleeding. Discharge Disposition: HOME SELF-CARE
[2018-03-07 11:41] LABS: Glucose,Whole Blood 96 mg/dL (75-99)
--- NOTE | 2018-03-07 16:15 | PN ---
PROGRESS NOTE DATE OF SERVICE: 03/07/2018. INTERVAL HISTORY: This 62-year-old woman who was admitted with vaginal bleeding had a D and C band packing by Dr. Yuen. The patient improved significantly. The patient had some cardiac stents and the patient is on antiplatelet agents. No chest pain. No palpitations. No fever. EXAM: Alert and oriented x3. Pulse 103, blood pressure 130/67, respirations 16, temperature 98.4, pulse ox 96% on room air. HEENT: Conjunctivae normal. NECK: No jugular venous distention. CARDIOVASCULAR: S1, S2 muffled. RESPIRATORY: Breath sounds diminished in the bases. No rhonchi. No crackles. ABDOMEN: Soft, nontender. LEGS: No edema. No swelling. NERVOUS SYSTEM: Nonfocal. LABS: Hemoglobin 10.2, white count 14.7. ASSESSMENT: 1. Lower gastrointestinal bleed with recent history of procedure secondary to cervical dysplasia, status post dilation and curettage with packing. 2. Diabetes mellitus type 2. 3. Hypertension, controlled. 4. Lupus. 5. Leukocytosis. 6. Gastroesophageal reflux disease. 7. Fibromyalgia. 8. Hyperlipidemia. 9. History of myocardial infarction. 10.Coronary artery disease, stent placement. 11.Low back pain, acute upper back pain, chronic with herniated disks. 12.Peripheral vascular disease. 13.History of nicotine dependence. RECOMMENDATIONS AND DISCUSSION: Recommend to continue current medical management and symptomatic treatment. Otherwise, resume the home medications. Monitor closely. Hemoglobin, CBC in the outpatient setting. Closely follow with Dr. Yuen in the outpatient setting. Further recommendations to follow. MMODL / IJN: [id number] /
== END 2018-03-07 11:59 | disposition home or self-care (01) | DRG 909 ==
LOC: EC 09:43 → 6PED 11:39 → 3SUR 12:36
PROVIDERS: ADMIT Obstetrics & Gynecology; ATTEND Obstetrics & Gynecology
PROC: 30233N1 Transfusion of Nonautologous Red Blood Cells into Peripheral Vein, Percutaneous Approach (ICD-10-PCS; 2018-03-06)
PROC: 0W3R7ZZ Control Bleeding in Genitourinary Tract, Via Natural or Artificial Opening (ICD-10-PCS; principal; 2018-03-06 10:52)
DX: N99.820 Postprocedural hemorrhage of a genitourinary system organ or structure following a genitourinary system procedure (principal); K21.9 Gastro-esophageal reflux disease without esophagitis; I25.10 Atherosclerotic heart disease of native coronary artery without angina pectoris; M79.7 Fibromyalgia; N87.9 Dysplasia of cervix uteri, unspecified; E78.5 Hyperlipidemia, unspecified; G89.29 Other chronic pain; D72.829 Elevated white blood cell count, unspecified; F32.9 Major depressive disorder, single episode, unspecified; I10 Essential (primary) hypertension; E11.51 Type 2 diabetes mellitus with diabetic peripheral angiopathy without gangrene; I25.2 Old myocardial infarction; M32.9 Systemic lupus erythematosus, unspecified; M54.5 Low back pain; M54.6 Pain in thoracic spine; F17.210 Nicotine dependence, cigarettes, uncomplicated; J45.909 Unspecified asthma, uncomplicated; Z95.5 Presence of coronary angioplasty implant and graft; Z79.899 Other long term (current) drug therapy; Z79.4 Long term (current) use of insulin; Z79.02 Long term (current) use of antithrombotics/antiplatelets; Z90.49 Acquired absence of other specified parts of digestive tract; Z86.79 Personal history of other diseases of the circulatory system; Z86.14 Personal history of Methicillin resistant Staphylococcus aureus infection; Z86.19 Personal history of other infectious and parasitic diseases; Z80.9 Family history of malignant neoplasm, unspecified; Z86.69 Personal history of other diseases of the nervous system and sense organs
CPT/HCPCS: 36415; 36430; 80053; 83036; 85025; 85610; 85730; 86850; 86900; 86901; 86920; 96360; 99285

== ENCOUNTER → 2018-07-31 | Outpatient (CLI) | payer MEDICARE, OTHER ==
--- NOTE | 2018-07-31 16:05 | CT ---
EXAMINATION TYPE: CT angio abd aorta w/Runoff DATE OF EXAM: 07/31/2018 COMPARISON: 03/24/2017 HISTORY: Bilateral leg pain, hx of bypass CT DLP: 1525.3 mGycm CONTRAST: CTA abdominal aorta and runoff vessels with 3-D reconstruction is performed and without and with IV C ontrast, patient injected with 80 mL of Isovue 370. Contrast CTA of the abdominal aorta was performed from the lung bases through the through the ankles and feet.. 3-D reconstruction imaging obtained at a separate workstation. CONTRAST CT ABDOMEN AND PELVIS ABDOMINAL AORTA: Stable left infrarenal saccular thrombosed aneurysm of the abdominal aorta with a th rombosed saccular aneurysm measuring 1.7 AP and 1.1 transverse dimension stable. No internal flow is seen. Overall the transverse dimension of the abdominal aorta at this level is 2.6 cm and AP dimensio n is up to 1.7 cm. Aortobifemoral patent graft is again noted. No periaortic hematoma or contrast ext ravasation or dissection flap. SMA, BRENNA and renal arteries are patent. Moderate atherosclerotic change of the bilateral common iliac arteries right greater than left withou t hemodynamically significant stenosis. Internal and external iliac arteries are patent. Atheromatous change of the superficial femoral arteries bilaterally right greater than left with 50% stenosis is suggested right SFA with multifocal disease. No hemodynamically significant stenosis SFA on the left. Profunda femoris arteries are patent bilaterally. Popliteal arteries are patent bilaterally. Mild at heromatous change on the right without hemodynamically significant stenosis. Symmetric and patent tri furcations are noted. Peroneal, anterior tibial and posterior tibial arteries are patent throughout t he ankle. LIVER/GB- No significant abnormality is seen. Cholecystectomy clips noted. PANCREAS- No significant abnormality is seen. SPLEEN- No significant abnormality is seen. Splenic granulomas. ADRENALS- No significant abnormality is seen. KIDNEYS/BLADDER- No significant abnormality is seen. BOWEL- No Significant abnormality GENITAL ORGANS: No gross abnormality seen. LYMPH NODES- No greater than 1cm abdominal or pelvic lymph nodes areappreciated. OSSEOUS STRUCTURES- No significant abnormality is seen. OTHER- No significant abnormality is seen. IMPRESSION- 1. Stable saccular abdominal aortic aneurysm. Aortic bypass graft without complicating factor. 2. Atheromatous changes of the iliac and superficial femoral arteries right greater than left. 50% mu ltifocal disease of the right SFA as noted.
== END | disposition home or self-care (01) ==
LOC: RADCTMAIN 12:40
PROVIDERS: ATTEND Internal Medicine Interventional Cardiology
DX: I71.4 Abdominal aortic aneurysm, without rupture (principal); I70.8 Atherosclerosis of other arteries; I70.213 Atherosclerosis of native arteries of extremities with intermittent claudication, bilateral legs; E11.9 Type 2 diabetes mellitus without complications; E78.49 Other hyperlipidemia; F17.200 Nicotine dependence, unspecified, uncomplicated; I10 Essential (primary) hypertension; Z98.62 Peripheral vascular angioplasty status
CPT/HCPCS: 82565; 84520; 75635; 36415; Q9967

== ENCOUNTER 2019-01-24 10:36 | Emergency (ER) | payer MEDICARE, OTHER ==
[2019-01-24 10:41] VITALS: BP 183/80; PULSE 100; RESP 18; TEMP 98.2
[2019-01-24] MEDS ORDERED: MORPHINE SULFATE 4 MG/ML SYRINGE IM STA (11:21)
--- NOTE | 2019-01-24 11:51 | ED ---
General Adult HPI - General Chief complaint: Back Pain/Injury Stated complaint: fibromyalgia pain Time Seen by Provider: 01/24/19 10:49 Source: patient, RN notes reviewed Mode of arrival: wheelchair Limitations: no limitations - History of Present Illness Initial comments: 63-year-old female with a past medical history of low back pain, peripheral vascular disease, fibromyalgia, lupus presents to the emergency determine for chief complaint of back pain and bilateral leg pain. Patient states this is consistent with previous flares of fibromyalgia. Patient states that about a week ago she had to walk up stairs at her niece's graduation. States she walked up many more stairs and she is used to as she had to sit at the top of the bleachers. States that she knew she should not do this but had no rest the site. Patient states that since that time she has had a flare of her fibromyalgia. States that it is in her back and her legs. States that her [place] is not working. Patient has experienced this exact pain before. States she would follow up with her agronomy instructor as it is Friday she will call tomorrow. Patient denies any weakness in the lower extremities. Denies any bladder or bowel changes or saddle anesthesia. Patient has no other complaints at this time including shortness of breath, chest pain, abdominal pain, nausea or vomiting, headache, or visual changes. - Related Data Home Medications Medication Instructions Recorded Confirmed Clopidogrel [Plavix] 75 mg PO DAILY 08/19/16 03/06/18 Simvastatin [Zocor] 20 mg PO HS 08/19/16 03/06/18 predniSONE 5 mg PO DAILY 08/19/16 03/06/18 Albuterol Sulfate [Proair Hfa] 2 puff INHALATION RT-QID PRN 03/24/17 03/06/18 HYDROcodone/APAP 10-325MG [[place] 1 tab PO BID PRN 03/24/17 03/06/18 10-325] Hydroxychloroquine Sulfate 200 mg PO BID 03/24/17 03/06/18 [Plaquenil] Insulin NPH/Reg Insulin 70/30 28 unit SQ BID 03/24/17 03/06/18 [humuLIN 70/30 VIAL] amLODIPine [Norvasc] 2.5 mg PO DAILY 03/24/17 03/06/18 Gabapentin [Neurontin] 400 mg PO QID 05/22/17 03/06/18 tiZANidine [Zanaflex] 2 mg PO Q6H PRN 05/22/17 03/06/18 Cilostazol [Pletal] 100 mg PO BID 02/27/18 03/06/18 Famotidine [Pepcid] 20 mg PO DAILY 02/27/18 03/06/18 Montelukast [Singulair] 10 mg PO HS 02/27/18 03/06/18 Previous Rx's Medication Instructions Recorded Sulfamethox-Tmp 800-160Mg [Bactrim 1 tab PO Q12HR #20 tab 02/27/18 DS 800-160 mg] predniSONE 50 mg PO DAILY #3 tablet 01/24/19 Allergies Allergy/AdvReac Type Severity Reaction Status Date / Time No Known Allergies Allergy Verified 01/24/19 10:41 Review of Systems ROS Statement: Those systems with pertinent positive or pertinent negative responses have been documented in the HPI. ROS Other: All systems not noted in ROS Statement are negative. Past Medical History Past Medical History: Asthma, Chest Pain / Angina, Diabetes Mellitus, Fibromyalgia, GERD/Reflux, Hyperlipidemia, Hypertension, Myocardial Infarction (MS), Vascular Disorder Additional Past Medical History / Comment(s): lupus, sinusitis, low back pain- herniated discs, PVD, bilateral tinnitis, MS X3 Last Myocardial Infarction Date:: unknown History of Any Multi-Drug Resistant Organisms: None Reported, MRSA Date of last positivie culture/infection: 2010 MDRO Source:: right axilla Past Surgical History: Section, Cholecystectomy, Heart Catheterization With Stent Additional Past Surgical History / Comment(s): total w cardiac stents, colonoscopy, I&D R gluteal abscess, R salvary gland removed due to precancerous, uterus scrape Past Anesthesia/Blood Transfusion Reactions: No Reported Reaction Date of Last Stent Placement:: 08/01/05 Past Psychological History: Depression Smoking Status: Current every day smoker Past Alcohol Use History: None Reported Past Drug Use History: None Reported - Past Family History Father Additional Family Medical History / Comment(s): . Mother Family Medical History: Cancer Additional Family Medical History / Comment(s): . Sister(s) Family Medical History: Cancer General Exam Limitations: no limitations General appearance: alert, in no apparent distress Head exam: Present: atraumatic, normocephalic, normal inspection Eye exam: Present: normal appearance, PERRL, EOMI. Absent: scleral icterus, conjunctival injection, periorbital swelling ENT exam: Present: normal exam, mucous membranes moist Neck exam: Present: normal inspection, full ROM. Absent: tenderness, meningismus, lymphadenopathy Respiratory exam: Present: normal lung sounds bilaterally. Absent: respiratory distress, wheezes, rales, rhonchi, stridor Cardiovascular Exam: Present: regular rate, normal rhythm, normal heart sounds. Absent: systolic murmur, diastolic murmur, rubs, gallop, clicks Extremities exam: Present: normal capillary refill (Capillary refill less than 2 seconds, DP pulse 2+ in bilateral lower extremities.). Absent: calf tenderness (No tenderness noted in the bilateral calves) Back exam: Present: paraspinal tenderness, vertebral tenderness (Some generalized lumbar and paraspinal tenderness.). Absent: CVA tenderness (R), CVA tenderness (L) Neurological exam: Present: alert, oriented X3, CN II-XII intact, normal gait (Patient ambulatory.). Absent: motor sensory deficit Psychiatric exam: Present: normal affect, normal mood Course Vital Signs 01/24/19 10:39 Temperature 98.2 F Pulse Rate 100 Respiratory 18 Rate Blood Pressure 183/80 O2 Sat by Pulse 98 Oximetry Medical Decision Making - Medical Decision Making 63-year-old female presents to the emergency department for a chief complaint of pain. Patient states that she has had an exacerbation of her fibromyalgia. S tates it is in her back and legs. States this occurred after she walked up a long flight of stairs. She states her [place] was not working so she has not been taking this over the past several days. On exam patient is well-appearing. She is sitting in bed. Neurovascular status is intact in the bilateral lower extremities at the DP pulses 2+ equally and capillary refill less than 2 seconds. Patient is ambulatory. She has some generalized low back tenderness. No fevers or chills. No saddle anesthesia or bladder or bowel changes. No weakness of the lower extremity. Patient requesting something for pain. Will be given IM morphine. I will also increase her steroids from 5 mg per day to 50 mg per day for 3 days. Patient will follow up with her agronomy instructor tomorrow. She will return here if she has any worsening symptoms. Disposition Clinical Impression: Mechanical back pain Disposition: HOME SELF-CARE Condition: Good Instructions (If sedation given, give patient instructions): Chronic Back Pain (ED), Acute Low Back Pain (ED) Additional Instructions: Please take steroids as given incentive your prescription at home for the next 3 days. Follow-up with your agronomy instructor and primary care tomorrow. Return here if you have any worsening symptoms. Prescriptions: predniSONE 50 mg PO DAILY #3 tablet Is patient prescribed a controlled substance at d/c from ED?: No Referrals: Crystal Douglas MD [Primary Care Provider] - 1-2 days Time of Disposition: 11:48
== END 2019-01-24 12:15 | disposition home or self-care (01) ==
LOC: EC 10:36
DX: M54.9 Dorsalgia, unspecified (principal); M79.7 Fibromyalgia; M79.605 Pain in left leg; M79.604 Pain in right leg; E11.51 Type 2 diabetes mellitus with diabetic peripheral angiopathy without gangrene; E78.5 Hyperlipidemia, unspecified; K21.9 Gastro-esophageal reflux disease without esophagitis; I10 Essential (primary) hypertension; I25.2 Old myocardial infarction; F32.9 Major depressive disorder, single episode, unspecified; J45.909 Unspecified asthma, uncomplicated; F17.200 Nicotine dependence, unspecified, uncomplicated; Z79.4 Long term (current) use of insulin; Z79.02 Long term (current) use of antithrombotics/antiplatelets; Z79.51 Long term (current) use of inhaled steroids; Z79.899 Other long term (current) drug therapy; Z95.5 Presence of coronary angioplasty implant and graft
CPT/HCPCS: 99283; 96372; J2270

== ENCOUNTER 2019-03-02 11:43 | Emergency (ER) | payer MEDICARE, OTHER ==
[2019-03-02 12:05] VITALS: RESP 18
[2019-03-02] MEDS ORDERED: SODIUM CHLORIDE 0.9% 1,000 ML IV STA (12:41)
[2019-03-02] MEDS ORDERED: MORPHINE SULFATE 4 MG/ML SYRINGE IV STA (12:41)
[2019-03-02] MEDS ORDERED: ONDANSETRON 4 MG/2 ML VIAL IVP STA (12:41)
--- NOTE | 2019-03-02 12:44 | ED ---
General Adult HPI - General Chief complaint: Abdominal Pain Stated complaint: Vomiting Time Seen by Provider: 03/02/19 12:27 Source: patient, RN notes reviewed, old records reviewed Mode of arrival: ambulatory Limitations: no limitations - History of Present Illness Initial comments: 63-year-old female history of diabetes, gastroparesis presenting with 1 week of epigastric abdominal pain nausea vomiting. She states she's been unable to tolerate any significant amount of hydration or food. She has epigastric pain which is consistent with previous episodes of gastroparesis. She does admit to chronic abdominal pain, fibromyalgia. She denies fever or chills. Denies dysuria or hematuria. Denies lower abdominal pain. Denies chest pain or dyspne a. - Related Data Home Medications Medication Instructions Recorded Confirmed Clopidogrel [Plavix] 75 mg PO DAILY 08/19/16 03/02/19 Simvastatin [Zocor] 20 mg PO HS 08/19/16 03/02/19 predniSONE 5 mg PO DAILY 08/19/16 03/02/19 Albuterol Sulfate [Proair Hfa] 2 puff INHALATION RT-QID PRN 03/24/17 03/02/19 HYDROcodone/APAP 10-325MG [[place] 1 tab PO BID PRN 03/24/17 03/02/19 10-325] Hydroxychloroquine Sulfate 200 mg PO BID 03/24/17 03/02/19 [Plaquenil] Insulin NPH/Reg Insulin 70/30 28 unit SQ BID 03/24/17 03/02/19 [humuLIN 70/30 VIAL] amLODIPine [Norvasc] 2.5 mg PO DAILY 03/24/17 03/02/19 tiZANidine [Zanaflex] 2 mg PO Q6H PRN 05/22/17 03/02/19 Cilostazol [Pletal] 100 mg PO BID 02/27/18 03/02/19 Famotidine [Pepcid] 20 mg PO BID 02/27/18 03/02/19 Loratadine [Claritin] 10 mg PO DAILY 03/02/19 03/02/19 Allergies Allergy/AdvReac Type Severity Reaction Status Date / Time No Known Allergies Allergy Verified 03/02/19 12:31 Review of Systems ROS Statement: Those systems with pertinent positive or pertinent negative responses have been documented in the HPI. ROS Other: All systems not noted in ROS Statement are negative. Past Medical History Past Medical History: Asthma, Chest Pain / Angina, Diabetes Mellitus, Fibromyalgia, GERD/Reflux, Hyperlipidemia, Hypertension, Myocardial Infarction ([place]), Vascular Disorder Additional Past Medical History / Comment(s): lupus, sinusitis, low back pain- herniated discs, PVD, bilateral tinnitis, [place] X3 Last Myocardial Infarction Date:: unknown History of Any Multi-Drug Resistant Organisms: None Reported, MRSA Date of last positivie culture/infection: 2010 MDRO Source:: right axilla Past Surgical History: Section, Cholecystectomy, Heart Catheterization With Stent Additional Past Surgical History / Comment(s): total w cardiac stents, colonoscopy, I&D R gluteal abscess, R salvary gland removed due to precancerous, uterus scrape Past Anesthesia/Blood Transfusion Reactions: No Reported Reaction Date of Last Stent Placement:: 08/01/05 Past Psychological History: Depression Smoking Status: Current every day smoker Past Alcohol Use History: None Reported Past Drug Use History: None Reported - Past Family History Father Additional Family Medical History / Comment(s): . Mother Family Medical History: Cancer Additional Family Medical History / Comment(s): . Sister(s) Family Medical History: Cancer General Exam Limitations: no limitations General appearance: alert, in no apparent distress Head exam: Present: atraumatic, normocephalic Eye exam: Present: normal appearance, PERRL ENT exam: Present: mucous membranes dry Neck exam: Present: normal inspection. Absent: tenderness, meningismus Respiratory exam: Present: normal lung sounds bilaterally. Absent: respiratory distress, wheezes Cardiovascular Exam: Present: regular rate, normal rhythm GI/Abdominal exam: Present: soft, tenderness (Epigastric tenderness to p alpation). Absent: distended, guarding Extremities exam: Present: normal inspection, normal capillary refill. Absent: pedal edema, calf tenderness Neurological exam: Present: alert, oriented X3 Psychiatric exam: Present: normal affect, normal mood Skin exam: Present: warm, dry, intact. Absent: cyanosis, diaphoretic Course Vital Signs 03/02/19 12:04 Temperature 97.8 F Pulse Rate 92 Respiratory 18 Rate Blood Pressure 148/75 O2 Sat by Pulse 98 Oximetry Medical Decision Making - Medical Decision Making 63-year-old female with epigastric pain, nausea vomiting for one week. History of gastroparesis. Patient well-appearing with a nonsurgical abdomen. Stable vitals. Dry mucous membranes but otherwise looks well. X-ray negative for obstruction. She has normal CBC, normal CMP, normal kidney function, normal urinalysis with no ketones. Acetone negative. Glucose mildly elevated but otherwise unremarkable labs. After IV hydration and symptom control, she is feeling better. 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 She will return with worsening or changing symptoms. - Lab Data Result diagrams: 03/02/19 13:05 03/02/19 13:05 Lab Results 03/02/19 03/02/19 03/02/19 Range/Units 13:05 13:05 13:05 WBC 10.6 (3.8-10.6) k/uL RBC 4.34 (3.80-5.40) m/uL Hgb 13.1 (11.4-16.0) gm/dL Hct 40.4 (34.0-46.0) % MCV 93.1 (80.0-100.0) fL MCH 30.1 (25.0-35.0) pg MCHC 32.3 (31.0-37.0) g/dL RDW 15.6 H (11.5-15.5) % Plt Count 251 (150-450) k/uL Neutrophils % 85 % Lymphocytes % 9 % Monocytes % 4 % Eosinophils % 1 % Basophils % 0 % Neutrophils # 9.0 H (1.3-7.7) k/uL Lymphocytes # 0.9 L (1.0-4.8) k/uL Monocytes # 0.4 (0-1.0) k/uL Eosinophils # 0.1 (0-0.7) k/uL Basophils # 0.0 (0-0.2) k/uL Sodium 138 (137-145) mmol/L Potassium 4.4 (3.5-5.1) mmol/L Chloride 104 (98-107) mmol/L Carbon Dioxide 26 (22-30) mmol/L Anion Gap 8 mmol/L BUN 12 (7-17) mg/dL Creatinine 1.13 H (0.52-1.04) mg/dL Est GFR (CKD-EPI)AfAm 61 (>60 ml/min/1.73 sqM) Est GFR (CKD-EPI)NonAf 53 (>60 ml/min/1.73 sqM) Glucose 186 H (74-99) mg/dL Plasma Lactic Acid Eric (0.7-2.0) mmol/L Calcium 9.8 (8.4-10.2) mg/dL Total Bilirubin 0.4 (0.2-1.3) mg/dL AST 17 (14-36) U/L ALT 12 (9-52) U/L Alkaline Phosphatase 66 (38-126) U/L Troponin I (0.000-0.034) ng/mL Total Protein 7.6 (6.3-8.2) g/dL Albumin 4.3 (3.5-5.0) g/dL Amylase 35 (30-110) U/L Lipase 24 (23-300) U/L Urine Color Yellow Urine Appearance Clear (Clear) Urine pH 5.5 (5.0-8.0) Ur Specific [place] 1.019 (1.001-1.035) Urine Protein 1+ H (Negative) Urine Glucose (UA) Negative (Negative) Urine Ketones Negative (Negative) Urine Blood Negative (Negative) Urine Nitrite Negative (Negative) Urine Bilirubin Negative (Negative) Urine Urobilinogen 2.0 (<2.0) mg/dL Ur Leukocyte Esterase Negative (Negative) Urine WBC 1 (0-5) /hpf Ur Squamous Epith Cells 6 H (0-4) /hpf Amorphous Sediment Occasional H (None) /hpf Urine Mucus Rare H (None) /hpf Acetone, Qual Negative (Negative) 03/02/19 03/02/19 Range/Units 13:05 13:05 WBC (3.8-10.6) k/uL RBC (3.80-5.40) m/uL Hgb (11.4-16.0) gm/dL Hct (34.0-46.0) % MCV (80.0-100.0) fL MCH (25.0-35.0) pg MCHC (31.0-37.0) g/dL RDW (11.5-15.5) % Plt Count (150-450) k/uL Neutrophils % % Lymphocytes % % Monocytes % % Eosinophils % % Basophils % % Neutrophils # (1.3-7.7) k/uL Lymphocytes # (1.0-4.8) k/uL Monocytes # (0-1.0) k/uL Eosinophils # (0-0.7) k/uL Basophils # (0-0.2) k/uL Sodium (137-145) mmol/L Potassium (3.5-5.1) mmol/L Chloride (98-107) mmol/L Carbon Dioxide (22-30) mmol/L Anion Gap mmol/L BUN (7-17) mg/dL Creatinine (0.52-1.04) mg/dL Est GFR (CKD-EPI)AfAm (>60 ml/min/1.73 sqM) Est GFR (CKD-EPI)NonAf (>60 ml/min/1.73 sqM) Glucose (74-99) mg/dL Plasma Lactic Acid Eric 0.9 (0.7-2.0) mmol/L Calcium (8.4-10.2) mg/dL Total Bilirubin (0.2-1.3) mg/dL AST (14-36) U/L ALT (9-52) U/L Alkaline Phosphatase (38-126) U/L Troponin I <0.012 (0.000-0.034) ng/mL Total Protein (6.3-8.2) g/dL Albumin (3.5-5.0) g/dL Amylase (30-110) U/L Lipase (23-300) U/L Urine Color Urine Appearance (Clear) Urine pH (5.0-8.0) Ur Specific [place] (1.001-1.035) Urine Protein (Negative) Urine Glucose (UA) (Negative) Urine Ketones (Negative) Urine Blood (Negative) Urine Nitrite (Negative) Urine Bilirubin (Negative) Urine Urobilinogen (<2.0) mg/dL Ur Leukocyte Esterase (Negative) Urine WBC (0-5) /hpf Ur Squamous Epith Cells (0-4) /hpf Amorphous Sediment (None) /hpf Urine Mucus (None) /hpf Acetone, Qual (Negative) Disposition Clinical Impression: Dehydration, Abdominal pain Disposition: HOME SELF-CARE Condition: Good Instructions (If sedation given, give patient instructions): Abdominal Pain (ED), Acute Nausea and Vomiting (ED) Is patient prescribed a controlled substance at d/c from ED?: No Referrals: Crystal Douglas MD [Primary Care Provider] - 1-2 days Frank Tee MD [STAFF PHYSICIAN] - 1-2 days Time of Disposition: 14:58
[2019-03-02 13:30] LABS: Basophils % (A) 0 %; Eosinophils # (A) 0.1 k/uL (0-0.7); Eosinophils % (A) 1 %; HCT 40.4 % (34.0-46.0); HGB 13.1 gm/dL (11.4-16.0); Lymphocytes # (A) 0.9 k/uL (1.0-4.8); Lymphocytes % (A) 9 %; MCH 30.1 pg (25.0-35.0); MCHC 32.3 g/dL (31.0-37.0); MCV 93.1 fL (80.0-100.0); Mean Platelet Volume 7.5; Monocytes # (A) 0.4 k/uL (0-1.0); Monocytes % (A) 4 %; Neutrophils % (A) 85 %; Platelet Count 251 k/uL (150-450); RBC 4.34 m/uL (3.80-5.40); RDW 15.6 % (11.5-15.5); WBC 10.6 k/uL (3.8-10.6)
[2019-03-02 13:40] LABS: Amorphous Sediment,Urine Occasional /hpf; Appearance,Urine Clear (Clear); Bilirubin,Urine Negative (Negative); Blood,Urine Negative (Negative); Color,Urine Yellow; Glucose,Urine (UA) Negative (Negative); Ketones,Urine Negative (Negative); Leukocyte Esterase,Urine Negative (Negative); Mucus,Urine Rare /hpf; Nitrite,Urine Negative (Negative); PH, Urine 5.5 (5.0-8.0); Protein,Urine 1+ (Negative); Specific Gravity,Urine 1.019 (1.001-1.035); Squamous Epithelial Cell,Urine 6 /hpf (0-4); WBC,Urine 1 /hpf (0-5)
[2019-03-02 13:41] LABS: ALT 12 U/L (9-52); AST 17 U/L (14-36); African American GFR (CKD) 61 (>60 ml/min/1.73 sqM); Albumin 4.3 g/dL (3.5-5.0); Alkaline Phosphatase 66 U/L (38-126); Amylase 35 U/L (30-110); Anion Gap 8 mmol/L; Blood Urea Nitrogen 12 mg/dL (7-17); Calcium 9.8 mg/dL (8.4-10.2); Carbon Dioxide 26 mmol/L (22-30); Chloride 104 mmol/L (98-107); Glucose 186 mg/dL (74-99); Lipase 24 U/L (23-300); Potassium 4.4 mmol/L (3.5-5.1); Sodium 138 mmol/L (137-145); Total Bilirubin 0.4 mg/dL (0.2-1.3); Total Protein 7.6 g/dL (6.3-8.2)
--- NOTE | 2019-03-02 14:01 | XR ---
EXAMINATION TYPE: XR KUB DATE OF EXAM: 03/02/2019 1:49 PM CLINICAL HISTORY: Abdominal pain, history of gastroparesis. TECHNIQUE: Two Upright KUB images of the abdomen are obtained. COMPARISON: Abdominal x-ray February 27, 2018. CT aorta July 31, 2018 FINDINGS: Scattered gas is seen in non-distended stomach and small bowel loops. Gas and fecal materia l is seen in non-distended colon. Numerous splenic calcifications consistent with products of old gra nulomatous disease are redemonstrated. Vascular calcification of the splenic artery is again seen. Ch olecystectomy clips are redemonstrated. Surgical clips left groin level are redemonstrated. No pneumo peritoneum. Lung bases are clear. Calcified granuloma left lower lung redemonstrated. Coronary stents are again seen. Osseous structures intact. IMPRESSION: Overall nonobstructive bowel gas pattern.
[2019-03-02 15:44] VITALS: BP 152/82; PULSE 75; TEMP 98.4
== END 2019-03-02 15:44 | disposition home or self-care (01) ==
LOC: EC 11:43
DX: E86.0 Dehydration (principal); R10.13 Epigastric pain; R11.2 Nausea with vomiting, unspecified; J45.909 Unspecified asthma, uncomplicated; E11.9 Type 2 diabetes mellitus without complications; K21.9 Gastro-esophageal reflux disease without esophagitis; E78.5 Hyperlipidemia, unspecified; I10 Essential (primary) hypertension; I25.2 Old myocardial infarction; F32.9 Major depressive disorder, single episode, unspecified; F17.200 Nicotine dependence, unspecified, uncomplicated; Z86.14 Personal history of Methicillin resistant Staphylococcus aureus infection; Z79.01 Long term (current) use of anticoagulants; Z79.52 Long term (current) use of systemic steroids; Z79.4 Long term (current) use of insulin; Z79.899 Other long term (current) drug therapy; Z95.5 Presence of coronary angioplasty implant and graft; Z90.49 Acquired absence of other specified parts of digestive tract
CPT/HCPCS: 36415; 80053; 82150; 82009; 83605; 83690; 84484; 85025; 81001; 74018; 99284; 96374; 96375; 96361; J2270; J2405

== ENCOUNTER → 2020-03-16 | Outpatient (CLI) | payer MEDICARE, OTHER ==
--- NOTE | 2020-03-16 13:53 | CT ---
EXAMINATION TYPE: CT abdomen pelvis w con DATE OF EXAM: 03/16/2020 COMPARISON: 07/31/2018 HISTORY: Weight loss x [address] DLP: 373.4 mGycm CONTRAST: CT scan of the abdomen and pelvis is performed with Oral Contrast and with IV Contrast, patient injec braxton with 80 mL of Isovue M300. FINDINGS: LUNG BASES-: No visible nodule. No infiltrate. LIVER/GB: Cholecystectomy clips noted. No space occupying hepatic lesion. Biliary tree is of tiffanie l caliber. PANCREAS: No inflammation. No distinct mass. SPLEEN: No splenic enlargement. No lesion seen. Splenic granulomas noted. ADRENALS: No nodule. No thickening. KIDNEYS/BLADDER: No hydronephrosis. No nephrolithiasis. No distinct renal mass. Urinary bladder g rossly unremarkable. BOWEL: Normal appendix. Normal bowel caliber. No inflammation. GENITAL ORGANS: No gross abnormality. LYMPH NODES: No greater than 1cm abdominal or pelvic lymph nodes are appreciated. AORTA: No significant abnormality. OSSEOUS STRUCTURES: No significant abnormality is seen. OTHER: No significant additional abnormality is seen. IMPRESSION: 1. No significant abnormality to account for the patient's symptoms. Weight loss.
== END | disposition home or self-care (01) ==
LOC: RADCTMAIN 11:48
PROVIDERS: ATTEND Internal Medicine Gastroenterology
DX: R63.4 Abnormal weight loss (principal)
CPT/HCPCS: 82565; 84520; 74177; 36415; Q9967 ×2

== ENCOUNTER 2020-04-10 06:40 | Day surgery (SDC) | payer MEDICARE, OTHER ==
[~2020-04-10 06:40] MED LIST changes: +LIDOCAINE 1% (10MG/ML) FOR IV START INTRADERMA PRN
[2020-04-10 07:12] VITALS: RESP 16; TEMP 98
[2020-04-10 07:19] LABS: Glucose,Whole Blood 197 mg/dL (75-99)
[2020-04-10] MEDS ORDERED: PROPOFOL 10 MG/ML 20 ML VIAL IV ONE (07:37)
--- NOTE | 2020-04-10 08:10 | P.PCN ---
Date of Procedure: 04/10/20 Description of Procedure: BRIEF HISTORY: Patient is a 64-year-old female presenting for outpatient colonoscopy for evaluation of change in bowel habits. Patient reports unintentional weight loss. Last colonoscopy over 10 years ago. No family history of colon cancer. PROCEDURE PERFORMED: Colonoscopy . PREOPERATIVE DIAGNOSIS: Change in bowel habits, last colonoscopy over 10 years ago. ESTIMATED BLOOD LOSS: Minimal. IV sedation per Anesthesia. PROCEDURE: After informed consent was obtained, the patient, was brought into the endoscopy unit. IV sedation was administered by Anesthesia under continuous monitoring. Digital rectal examination was normal. Initially the Olympus CF-190 flexible video colonoscope was then inserted in the rectum, gradually advanced into the cecum without any difficulty. Careful examination was performed as the scope was gradually being withdrawn. Ileocecal valve and the appendiceal orifice were visualized and appeared normal. Prep was fair, prohibiting complete visualization of the mucosa. Mucosa of the cecum, ascending colon, transverse colon, descending colon, sigmoid colon, and rectum appeared which was visualized did appear normal, however complete visualization of the mucosa limited by fair prep. Retroflexion was performed in the rectum and no lesions were seen, low- grade internal hemorrhoids and skin tags noted. The patient tolerated the procedure well. IMPRESSION: Fair prep, prohibiting complete visualization of the mucosa. Low-grade internal hemorrhoids. Normal-appearing colon from rectum to cecum. RECOMMENDATIONS: Findings of this examination were discussed with the patient and her family. Okay to resume diet. Okay to resume medications. Would recommend repeat colonoscopy in 6-12 months with 2 day prep given fair prep on current colonoscopy.
[2020-04-10] MEDS ORDERED: LABETALOL 5 MG/ML VIAL MDV IV ONE (08:25)
[2020-04-10 08:52] VITALS: BP 191/81; PULSE 84
== END 2020-04-10 08:53 | disposition home or self-care (01) ==
LOC: ORWHC2ENDO 06:40
PROVIDERS: ATTEND Internal Medicine
DX: R19.4 Change in bowel habit (principal); K64.8 Other hemorrhoids; Z80.0 Family history of malignant neoplasm of digestive organs; Z79.899 Other long term (current) drug therapy; Z79.891 Long term (current) use of opiate analgesic; Z79.02 Long term (current) use of antithrombotics/antiplatelets; Z90.49 Acquired absence of other specified parts of digestive tract; Z98.890 Other specified postprocedural states; Z87.19 Personal history of other diseases of the digestive system; I25.2 Old myocardial infarction; I25.10 Atherosclerotic heart disease of native coronary artery without angina pectoris; E78.5 Hyperlipidemia, unspecified; I10 Essential (primary) hypertension; Z95.5 Presence of coronary angioplasty implant and graft; J45.909 Unspecified asthma, uncomplicated; F17.210 Nicotine dependence, cigarettes, uncomplicated; E11.9 Type 2 diabetes mellitus without complications; M79.7 Fibromyalgia; Z79.4 Long term (current) use of insulin
CPT/HCPCS: 45378; J2704

== ENCOUNTER 2020-08-27 15:24 | Emergency (ER) | payer MEDICARE, OTHER ==
[2020-08-27 15:35] LABS: Glucose,Whole Blood 593 mg/dL (75-99)
[2020-08-27 15:37] VITALS: RESP 18; TEMP 98
[2020-08-27] MEDS ORDERED: SODIUM CHLORIDE 0.9% 1,000 ML IV STA (16:05)
--- NOTE | 2020-08-27 16:12 | ED ---
Recheck HPI - General Chief Complaint: Recheck/Abnormal Lab/Rx Stated Complaint: abn labs Time Seen by Provider: 08/27/20 15:39 Source: patient Mode of arrival: ambulatory Limitations: no limitations - History of Present Illness Initial Comments: Patient is a 64 -year-old female presenting to the emergency department with elevated glucose levels. Patient states she went to an urgent care today for low back pain, seeing as she had a UTI. Patient states they checked her urine and she had a lot of glucose in her urine so after they checked her blood glucose it was over 500 so they told patient to go to the ER. Patient states she is a type II diabetic, she normally checks her sugars twice a day over the last few days she has been feeling fatigued and dealing with low back pain so she did not check her sugars. She states she is also not been sleeping well over the past few days so when she fell asleep last night she forgot to take her insulin before she fell asleep, and she also did not take insulin this morning before she woke up to go to the clinic. Patient denies any chest pain, shortness of breath, nausea or vomiting. She is feeling with some mild low back pain, no fever or chills. Patient states she feels her normal self. She states she wanted to just go home and take her insulin however they recommended she go into the ER. Patient has no further complaints at this time. Upon arrival at the ER, patient's vitals are stable, her glucose at triage was 593. - Related Data Home Medications Medication Instructions Recorded Confirmed Clopidogrel [Plavix] 75 mg PO DAILY 08/19/16 08/27/20 Simvastatin [Zocor] 20 mg PO HS 08/19/16 08/27/20 predniSONE 5 mg PO DAILY 08/19/16 08/27/20 Albuterol Sulfate [Proair Hfa] 2 puff INHALATION RT-QID PRN 03/24/17 08/27/20 HYDROcodone/APAP 10-325MG [[place] 1 tab PO BID PRN 03/24/17 08/27/20 10-325] Hydroxychloroquine Sulfate 200 mg PO BID 03/24/17 08/27/20 [Plaquenil] Famotidine [Pepcid] 20 mg PO BID 02/27/18 08/27/20 Albuterol Nebulized [Ventolin 2.5 mg INHALATION RT-QID PRN 08/27/20 08/27/20 Nebulized] Amitriptyline HCl [Elavil] 25 mg PO HS 08/27/20 08/27/20 Amitriptyline HCl [Elavil] 50 mg PO HS 08/27/20 08/27/20 Insulin Aspart [NovoLOG Flexpen] 30 units SQ BID 08/27/20 08/27/20 Insulin Glargine,Hum.rec.anlog 28 unit SQ HS 08/27/20 08/27/20 [Lantus Solostar] Losartan Potassium 50 mg PO DAILY 08/27/20 08/27/20 Pantoprazole Sodium [Protonix] 40 mg PO DAILY 08/27/20 08/27/20 amLODIPine [Norvasc] 5 mg PO DAILY 08/27/20 08/27/20 tiZANidine [Zanaflex] 2 mg PO BID@0800,1400 08/27/20 08/27/20 tiZANidine [Zanaflex] 4 mg PO HS 08/27/20 08/27/20 Allergies Allergy/AdvReac Type Severity Reaction Status Date / Time No Known Allergies Allergy Verified 08/27/20 16:43 Review of Systems ROS Statement: Those systems with pertinent positive or pertinent negative responses have been documented in the HPI. ROS Other: All systems not noted in ROS Statement are negative. Past Medical History Past Medical History: Asthma, Chest Pain / Angina, Diabetes Mellitus, Fibromyalgia, GERD/Reflux, Hyperlipidemia, Hypertension, Myocardial Infarction ([place]), Vascular Disorder Additional Past Medical History / Comment(s): DOPPLER TO BE ORDERED FOR LEG PAIN, HIP DOWN. lupus, sinusitis, low back pain-herniated discs, PVD, bilateral tinnitis, [place] X3 Last Myocardial Infarction Date:: unknown History of Any Multi-Drug Resistant Organisms: None Reported, MRSA Date of last positivie culture/infection: 2010 MDRO Source:: right axilla Past Surgical History: Section, Cholecystectomy, Heart Catheterization With Stent Additional Past Surgical History / Comment(s): total w cardiac stents, c olonoscopy, I&D R gluteal abscess, R salvary gland removed due to precancerous, uterus scrape Past Anesthesia/Blood Transfusion Reactions: No Reported Reaction Date of Last Stent Placement:: 08/01/05 Past Psychological History: Depression Smoking Status: Current every day smoker Past Alcohol Use History: None Reported Past Drug Use History: None Reported - Past Family History Father Additional Family Medical History / Comment(s): . Mother Family Medical History: Cancer Additional Family Medical History / Comment(s): . Sister(s) Family Medical History: Cancer General Exam - General Exam Comments Initial Comments: GENERAL: Patient is well-developed and well-nourished. Patient is nontoxic and in no acute distress. HEAD: Atraumatic, normocephalic. EYES: Pupils equal round and reactive to light, extraocular movements intact, sclera anicteric, conjunctiva are normal. Eyelids were unremarkable. ENT: TMs normal, nares patent, oropharynx clear without exudates. Moist mucous membranes. NECK: Normal range of motion, supple without lymphadenopathy or JVD. LUNGS: Unlabored respirations. Breath sounds clear to auscultation bilaterally and equal. No wheezes rales or rhonchi. HEART: Regular rate and rhythm without murmurs, rubs or gallops. ABDOMEN: Soft, nontender, normoactive bowel sounds. No guarding, no rebound. No masses appreciated. : Deferred MUSCULOSKELETAL: Normal extremities with adequate strength and normal range of motion, no pitting or edema. No clubbing or cyanosis. NEUROLOGICAL: Patient is alert and oriented x 3. Motor and sensory are also intact. Cranial nerves II through XII grossly intact. Symmetrical smile. Normal speech, normal gait. PSYCH: Normal mood, normal affect. SKIN: Warm, Dry, normal turgor, no rashes or lesions noted. Limitations: no limitations Course Vital Signs 08/27/20 08/27/20 15:27 17:28 Temperature 98 F Pulse Rate 93 97 Respiratory 18 18 Rate Blood Pressure 179/78 144/79 O2 Sat by Pulse 100 98 Oximetry Medical Decision Making - Medical Decision Making Patient is a 64-year-old female here sent in by urgent care after her glucose was measured over 500. She went there to rule out a UTI. Patient states she has been tired for the last few days and rest take her insulin last night and again this morning. Patient states she has not eaten all day. Patient's blood sugar was found to be a 585, rest of labs were stable, urine shows no evidence of infection. Patient was not having any other complaints. Patient given a liter of fluids, 10 units of insulin. She did eat while she was here as she has not eaten all day. After fluids, blood sugar was rechecked it was 434. Patient states she feels well and just wants to go home and rest. Patient states she will recheck her sugar when she gets home and will make sure to take her insulin. She'll follow-up with her PCP. Patient is stable for discharge. Return parameters were discussed with the patient and she verbalized understanding. Case discussed with Dr. Gottlieb. - Lab Data Result diagrams: 08/27/20 16:05 08/27/20 16:05 Lab Results 08/27/20 08/27/20 08/27/20 Range/Units 15:33 16:05 16:05 WBC 10.1 (3.8-10.6) k/uL RBC 4.05 (3.80-5.40) m/uL Hgb 11.6 (11.4-16.0) gm/dL Hct 36.0 (34.0-46.0) % MCV 88.8 (80.0-100.0) fL MCH 28.6 (25.0-35.0) pg MCHC 32.2 (31.0-37.0) g/dL RDW 14.2 (11.5-15.5) % Plt Count 358 (150-450) k/uL MPV 7.5 Neutrophils % 87 % Lymphocytes % 8 % Monocytes % 3 % Eosinophils % 2 % Basophils % 1 % Neutrophils # 8.7 H (1.3-7.7) k/uL Lymphocytes # 0.8 L (1.0-4.8) k/uL Monocytes # 0.3 (0-1.0) k/uL Eosinophils # 0.2 (0-0.7) k/uL Basophils # 0.1 (0-0.2) k/uL Hypochromasia Slight Sodium (137-145) mmol/L Potassium (3.5-5.1) mmol/L Chloride (98-107) mmol/L Carbon Dioxide (22-30) mmol/L Anion Gap mmol/L BUN (7-17) mg/dL Creatinine (0.52-1.04) mg/dL Est GFR (CKD-EPI)AfAm (>60 ml/min/1.73 sqM) Est GFR (CKD-EPI)NonAf (>60 ml/min/1.73 sqM) Glucose (74-99) mg/dL POC Glucose (mg/dL) 593 H (75-99) mg/dL POC Glu Guillotine Trimmer ID Ruiz Ortez Calcium (8.4-10.2) mg/dL Total Bilirubin (0.2-1.3) mg/dL AST (14-36) U/L ALT (4-34) U/L Alkaline Phosphatase (38-126) U/L Total Protein (6.3-8.2) g/dL Albumin (3.5-5.0) g/dL Urine Color Light Yellow Urine Appearance Clear (Clear) Urine pH 5.5 (5.0-8.0) Ur Specific [place] 1.024 (1.001-1.035) Urine Protein Trace H (Negative) Urine Glucose (UA) 4+ H (Negative) Urine Ketones Negative (Negative) Urine Blood Negative (Negative) Urine Nitrite Negative (Negative) Urine Bilirubin Negative (Negative) Urine Urobilinogen <2.0 (<2.0) mg/dL Ur Leukocyte Esterase Negative (Negative) 08/27/20 08/27/20 Range/Units 16:05 17:26 WBC (3.8-10.6) k/uL RBC (3.80-5.40) m/uL Hgb (11.4-16.0) gm/dL Hct (34.0-46.0) % MCV (80.0-100.0) fL MCH (25.0-35.0) pg MCHC (31.0-37.0) g/dL RDW (11.5-15.5) % Plt Count (150-450) k/uL MPV Neutrophils % % Lymphocytes % % Monocytes % % Eosinophils % % Basophils % % Neutrophils # (1.3-7.7) k/uL Lymphocytes # (1.0-4.8) k/uL Monocytes # (0-1.0) k/uL Eosinophils # (0-0.7) k/uL Basophils # (0-0.2) k/uL Hypochromasia Sodium 130 L (137-145) mmol/L Potassium 5.3 H (3.5-5.1) mmol/L Chloride 99 (98-107) mmol/L Carbon Dioxide 21 L (22-30) mmol/L Anion Gap 10 mmol/L BUN 20 H (7-17) mg/dL Creatinine 1.05 H (0.52-1.04) mg/dL Est GFR (CKD-EPI)AfAm 66 (>60 ml/min/1.73 sqM) Est GFR (CKD-EPI)NonAf 57 (>60 ml/min/1.73 sqM) Glucose 585 H* (74-99) mg/dL POC Glucose (mg/dL) 434 H (75-99) mg/dL POC Glu Guillotine Trimmer ID Sharon Kirkland Calcium 9.9 (8.4-10.2) mg/dL Total Bilirubin 0.4 (0.2-1.3) mg/dL AST 19 (14-36) U/L ALT 13 (4-34) U/L Alkaline Phosphatase 87 (38-126) U/L Total Protein 7.8 (6.3-8.2) g/dL Albumin 4.3 (3.5-5.0) g/dL Urine Color Urine Appearance (Clear) Urine pH (5.0-8.0) Ur Specific [place] (1.001-1.035) Urine Protein (Negative) Urine Glucose (UA) (Negative) Urine Ketones (Negative) Urine Blood (Negative) Urine Nitrite (Negative) Urine Bilirubin (Negative) Urine Urobilinogen (<2.0) mg/dL Ur Leukocyte Esterase (Negative) Disposition Clinical Impression: Hyperglycemia, Dehydration Disposition: HOME SELF-CARE Condition: Stable Instructions (If sedation given, give patient instructions): Diabetic Hypergl ycemia (ED) Additional Instructions: Please return to the Emergency Department if symptoms worsen or any other concerns. Be sure to check sugar levels, take insulin as needed. Follow-up with your physician. Is patient prescribed a controlled substance at d/c from ED?: No Referrals: Mauro Greene MD [Primary Care Provider] - 1-2 days
[2020-08-27] MEDS ORDERED: INSULIN ASPART (NovoLOG) 100 UNIT/ML VIAL SQ ONE (16:13)
[2020-08-27 16:20] LABS: Basophils # (A) 0.1 k/uL (0-0.2); Basophils % (A) 1 %; Eosinophils # (A) 0.2 k/uL (0-0.7); Eosinophils % (A) 2 %; HGB 11.6 gm/dL (11.4-16.0); Hypochromasia Slight; Lymphocytes # (A) 0.8 k/uL (1.0-4.8); Lymphocytes % (A) 8 %; MCH 28.6 pg (25.0-35.0); MCHC 32.2 g/dL (31.0-37.0); MCV 88.8 fL (80.0-100.0); Mean Platelet Volume 7.5; Monocytes # (A) 0.3 k/uL (0-1.0); Monocytes % (A) 3 %; Neutrophils # (A) 8.7 k/uL (1.3-7.7); Neutrophils % (A) 87 %; Platelet Count 358 k/uL (150-450); RBC 4.05 m/uL (3.80-5.40); RDW 14.2 % (11.5-15.5); WBC 10.1 k/uL (3.8-10.6)
[2020-08-27 16:32] LABS: Albumin 4.3 g/dL (3.5-5.0); Calcium 9.9 mg/dL (8.4-10.2); Potassium 5.3 mmol/L (3.5-5.1); Total Bilirubin 0.4 mg/dL (0.2-1.3); Total Protein 7.8 g/dL (6.3-8.2)
[2020-08-27 16:33] LABS: Appearance,Urine Clear (Clear); Bilirubin,Urine Negative (Negative); Blood,Urine Negative (Negative); Color,Urine Light Yellow; Glucose,Urine (UA) 4+ (Negative); Ketones,Urine Negative (Negative); Leukocyte Esterase,Urine Negative (Negative); Nitrite,Urine Negative (Negative); PH, Urine 5.5 (5.0-8.0); Protein,Urine Trace (Negative); Specific Gravity,Urine 1.024 (1.001-1.035); Urobilinogen,Urine <2.0 mg/dL (<2.0)
[2020-08-27 17:29] VITALS: BP 144/79; PULSE 97
[2020-08-27 17:29] LABS: Glucose,Whole Blood 434 mg/dL (75-99)
== END 2020-08-27 17:43 | disposition home or self-care (01) ==
LOC: EC 15:24
DX: E11.65 Type 2 diabetes mellitus with hyperglycemia (principal); E86.0 Dehydration; I10 Essential (primary) hypertension; J45.909 Unspecified asthma, uncomplicated; E78.5 Hyperlipidemia, unspecified; M79.7 Fibromyalgia; K21.9 Gastro-esophageal reflux disease without esophagitis; I20.9 Angina pectoris, unspecified; I25.2 Old myocardial infarction; F32.9 Major depressive disorder, single episode, unspecified; F17.200 Nicotine dependence, unspecified, uncomplicated; Z79.51 Long term (current) use of inhaled steroids; Z79.4 Long term (current) use of insulin; Z79.899 Other long term (current) drug therapy; Z79.02 Long term (current) use of antithrombotics/antiplatelets
CPT/HCPCS: 36415; 80053; 81003; 85025; 96360; 99283